=== PATIENT | male | born 1945 | race Caucasian/White ===

== ENCOUNTER → 2016-06-03 | Outpatient (REF) | payer MEDICARE ==
[~2016-06-03] MED LIST: ASPI1TAB PO; ASPI32ECTA PO; METO25TA74 PO; PLAV75TA38 PO; VALS1TAB46 PO; ZOCO20TA PO; [UNRECOGNIZED DRUG - OTHER] PO
== END ==
LOC: M LABSMT 13:19
PROVIDERS: ATTEND Urology
DX: Z90.79 Acquired absence of other genital organ(s) (principal)

== ENCOUNTER → 2016-06-28 | Outpatient (CLI) | payer MEDICARE ==
[2016-06-28 17:38] LABS: ALBUMIN 3.9 GM/DL (3.2-5.2); ALBUMIN/GLOBULIN RATIO 1.34 (1.00-1.93); ALKALINE PHOSPHATASE 67 U/L (45-117); ALT/SGPT 44 U/L (12-78); ANION GAP 6 MEQ/L (8-16); AST/SGOT 29 U/L (15-37); BILIRUBIN,TOTAL 0.5 MG/DL (0.2-1.0); BLOOD UREA NITROGEN 20 MG/DL (7-18); CALCIUM LEVEL 8.8 MG/DL (8.8-10.2); CARBON DIOXIDE LEVEL 28 MEQ/L (21-32); CHLORIDE LEVEL 111 MEQ/L (98-107); CREATININE FOR GFR 1.08 MG/DL (0.70-1.30); FREE T4 0.92 NG/DL (0.76-1.46); GLOMERULAR FILTRATION RATE > 60.0 (>42); GLUCOSE, FASTING 75 MG/DL (83-110); MAGNESIUM LEVEL 2.1 MG/DL (1.8-2.4); SODIUM LEVEL 145 MEQ/L (136-145); TOTAL PROTEIN 6.8 GM/DL (6.4-8.2)
== END ==
LOC: M SMT 14:46
PROVIDERS: ATTEND Internal Medicine Cardiovascular Disease
DX: I25.10 Atherosclerotic heart disease of native coronary artery without angina pectoris (principal); I10 Essential (primary) hypertension; I50.9 Heart failure, unspecified; I71.4 Abdominal aortic aneurysm, without rupture

== ENCOUNTER → 2016-09-05 | Outpatient (CLI) | payer MEDICARE | LOC: M SMT 09:23 | PROVIDERS: ATTEND Nurse Practitioner Women's Health | DX: C61 Malignant neoplasm of prostate (principal) ==

== ENCOUNTER → 2016-12-03 | Outpatient (REF) | payer MEDICARE ==
[~2016-12-03] MED LIST changes: +ASPI325T24 PO; -ASPI32ECTA PO; +METO1TAB32 PO; -METO25TA74 PO; +PLAV1TAB2 PO; -PLAV75TA38 PO
== END ==
LOC: M SMT 13:08
PROVIDERS: ATTEND Nurse Practitioner Women's Health
DX: C61 Malignant neoplasm of prostate (principal)

== ENCOUNTER → 2016-12-11 | Outpatient (REF) | payer MEDICARE | LOC: M SMT 17:08 | PROVIDERS: ATTEND Urology | DX: C61 Malignant neoplasm of prostate (principal); Z79.899 Other long term (current) drug therapy ==

== ENCOUNTER → 2017-12-23 | Outpatient (CLI) | payer MEDICARE | LOC: M ONCR 10:13 | DX: D23.30 Other benign neoplasm of skin of unspecified part of face (principal) | CPT/HCPCS: G0463 ==

== ENCOUNTER → 2017-12-29 | Outpatient (CLI) | payer MEDICARE ==
[2017-12-29 18:51] LABS: PROSTATIC SPECIFIC AG MONITOR < 0.01 NG/ML (< 4.0)
== END ==
LOC: M SMT 14:06
DX: C61 Malignant neoplasm of prostate (principal)
CPT/HCPCS: 84153

== ENCOUNTER → 2017-12-31 | Outpatient (REF) | payer MEDICARE ==
[2017-12-31 19:29] LABS: APPEARANCE, URINE CLEAR (CLEAR); BACTERIA, URINE AUTO NEGATIVE (NEGATIVE); BILIRUBIN, URINE AUTO NEGATIVE (NEGATIVE); BLOOD, URINE BLOOD 1+ (NEGATIVE); COLOR, URINE YELLOW (YELLOW); GLUCOSE, URINE (UA) AUTO NEGATIVE (NEGATIVE); KETONE, URINE AUTO NEGATIVE (NEGATIVE); LEUKOCYTE ESTERASE, URINE AUTO NEGATIVE (NEGATIVE); MUCUS, URINE SMALL (NEGATIVE); NITRITE, URINE AUTO NEGATIVE (NEGATIVE); PROTEIN, URINE AUTO NEGATIVE (NEGATIVE); RBC, URINE AUTO 9 /HPF (0-3); SPECIFIC GRAVITY URINE AUTO 1.015 (1.002-1.035); SQUAMOUS EPITHELIAL CELL UR AU 0 /HPF (0-6); UROBILINOGEN, URINE AUTO 0.2 mg/dL (0.0-2.0); WBC, URINE AUTO 0 /HPF (0-3)
== END ==
LOC: M SMT 16:58
DX: R35.0 Frequency of micturition (principal)
CPT/HCPCS: 81001

== ENCOUNTER → 2018-02-04 | Outpatient (RCR) | payer MEDICARE ==
--- NOTE | 2018-01-12 10:00 | RADONC ---
RADIATION ONCOLOGY SIMULATION NOTE: DATE: 01/08/2018 CHART NUMBER: [id number] SIMULATION NOTE: Mr. Griffin was taken to the linear accelerator today for clinical setup of his electron beam left neck field. Setup was accomplished without difficulty or discomfort. Radiation treatment planning is underway and radiation treatments will begin subsequently. An immobilization device was created and will be used throughout the course of treatment. I was physically present throughout the course of clinical setup simulation.
--- NOTE | 2018-01-20 10:49 | RADONC ---
RADIATION ONCOLOGY PROGRESS NOTE DATE: 01/19/2018 CHART NUMBER: [id number] Mr. Griffin underwent his first fraction of radiation to the skin on his left neck pain. A dose of 250 cGy was given. The patient's review of systems is noncontributory. He denies nausea, vomiting, fevers, chills, night sweats, diplopia, headaches, anxiety or depression, anorexia, weight loss, visual disturbances, chest pain, urinary or bowel difficulties, bone pain, or neurological problems. PHYSICAL EXAMINATION: The patient's skin clearly showed no evidence of radiation change since this was his first fraction. The remainder of his physical exam remains unchanged. Mr. Griffin is tolerating treatments quite well and radiation will continue as scheduled.
--- NOTE | 2018-01-27 11:01 | RADONC ---
RADIATION ONCOLOGY PROGRESS NOTE: DATE: 01/26/2018 CHART NUMBER: [id number] PROGRESS NOTE: Mr. Griffin is presently at a dose of 1500 cGy to the skin of his left neck and is tolerating treatments quite well at this point with no complaints related to his radiation therapy. He is having no skin discomfort or other problems. REVIEW OF SYSTEMS: The patient's review of systems is noncontributory. Denies nausea, vomiting, fevers, chills, night sweats, diplopia, headaches, anxiety or depression, anorexia, weight loss, visual disturbances, chest pain, urinary or bowel difficulties, bone pain, or neurological problems. PHYSICAL EXAMINATION: The patient's skin is in good condition with no evidence of radiation change present. There is no moist or dry desquamation. The remainder of his physical exam remains unchanged. Mr. Griffin is tolerating treatments quite well and radiation will continue as scheduled.
--- NOTE | 2018-02-03 12:16 | RADONC ---
RADIATION ONCOLOGY PROGRESS NOTE DATE: 02/02/2018 CHART NUMBER: [id number] PROGRESS NOTE: Mr. Griffin is currently receiving radiotherapy to the skin of his left neck. 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 He is currently receiving local regional radiotherapy to prevent a recurrence and is at a dose of 2750 cGy of an anticipated 5000 cGy. REVIEW OF SYSTEMS: He denies any major issues specifically denying nausea, vomiting, fevers, chills, night sweats, diplopia, headaches, anxiety, depression, anorexia, weight loss, visual disturbance, chest pain, urinary or bowel difficulties, bone pain or neurologic issues. He also denies any skin tingling or irritation. EXAMINATION FINDINGS: The skin within the irradiated volume shows neither erythema nor desquamation. Lymphatics: No palpable peripheral lymphadenopathy is appreciated. The remainder of the physical examination is unchanged. IMPRESSION: Tolerating therapy well. PLAN: Treatments to continue.
[~2018-02-04] MED LIST changes: +AMIO200T; +ASPI1CHW2 PO; -ASPI325T24 PO; +ASPI325T25 PO; +ASPI81TA85 PO; +CARV3.12; +DIGO0.25; +ENTR1TAB; +FURO40TA2; +NITR0.4S14 SL; +TOLT1CAP
== END ==
LOC: M ONCR 01-08 13:01
PROVIDERS: ATTEND Radiology Radiation Oncology
DX: C44.42 Squamous cell carcinoma of skin of scalp and neck (principal)

== ENCOUNTER 2018-02-05 14:39 | Outpatient (RCR) | payer MEDICARE | END 2018-03-06 | LOC: M ONCR 02-06 14:32 | DX: C44.42 Squamous cell carcinoma of skin of scalp and neck (principal) | CPT/HCPCS: 77336 ==

== ENCOUNTER → 2018-03-18 | Outpatient (CLI) | payer MEDICARE | LOC: M ONCR 14:39 | DX: D04.4 Carcinoma in situ of skin of scalp and neck (principal); Z92.3 Personal history of irradiation | CPT/HCPCS: G0463 ==

== ENCOUNTER 2018-03-25 16:20 | Emergency (ER) | payer MEDICARE ==
[~2018-03-25] VITALS: Ht 188 cm; Wt 198.0 kg
[~2018-03-25 16:20] MED LIST changes: -AMIO200T; -ASPI1CHW2 PO; -ASPI81TA85 PO; -CARV3.12; -DIGO0.25; -ENTR1TAB; -FURO40TA2; -NITR0.4S14 SL; -TOLT1CAP
[2018-03-25] MEDS ORDERED: ASPI1CHW2 PO (16:33)
[2018-03-25] MEDS ORDERED: ASPI81TA85 PO (16:33)
[2018-03-25] MEDS ORDERED: AMIO200T (16:33)
[2018-03-25] MEDS ORDERED: CARV3.12 (16:33)
[2018-03-25] MEDS ORDERED: ENTR1TAB (16:35)
[2018-03-25] MEDS ORDERED: NITR0.4S14 SL (16:35)
[2018-03-25] MEDS ORDERED: TOLT1CAP (16:35)
[2018-03-25] MEDS ORDERED: FURO40TA2 (16:35)
[2018-03-25] MEDS ORDERED: DIGO0.25 (16:35)
[2018-03-25 17:23] LABS: BASO # 0.1 10^3/uL (0.0-0.2); BASO % 1.4 % (0.0-1.0); EOS # 0.3 10^3/uL (0.0-0.50); EOS % 5.4 % (0.0-3.0); HEMOGLOBIN 14.5 g/dl (13.5-17.5); LYMPH # 1.1 10^3/uL (1.5-4.5); LYMPH % 20.6 % (24.0-44.0); MEAN CORPUSCULAR HEMOGLOBIN 31.9 pg (27.0-33.0); MEAN CORPUSCULAR VOLUME 96.7 fl (80.0-96.0); MONO # 0.8 10^3/uL (0.0-0.8); MONO % 14.6 % (0.0-5.0); NEUTROPHILS # 3.2 10^3/uL (1.8-7.7); NEUTROPHILS % 57.6 % (36.0-66.0); PLATELET COUNT, AUTOMATED 205 10^3/uL (150-450); RED BLOOD COUNT 4.55 10^6/uL (4.30-6.10); WHITE BLOOD COUNT 5.5 10^3/uL (4.0-10.0)
[2018-03-25 17:58] LABS: BLOOD UREA NITROGEN 25 MG/DL (7-18); CALCIUM LEVEL 8.5 MG/DL (8.8-10.2); CARBON DIOXIDE LEVEL 25 MEQ/L (21-32); CHLORIDE LEVEL 110 MEQ/L (98-107); CPK CREATINE PHOSPHOKINASE 301 U/L (39-308); CREATININE FOR GFR 1.28 MG/DL (0.70-1.30); FREE T4 0.85 NG/DL (0.76-1.46); GLOMERULAR FILTRATION RATE 58.6 (>42); GLUCOSE, FASTING 116 MG/DL (70-100); MB/CK RELATIVE INDEX 2.26 (< OR =4); POTASSIUM SERUM 4.5 MEQ/L (3.5-5.1); SODIUM LEVEL 142 MEQ/L (136-145); TROPONIN I < 0.02 NG/ML (< 0.10)
--- NOTE | 2018-03-25 18:10 | REP ---
Reason for exam is leukocytosis HISTORY: Chest pain. COMPARISON: Multiple, the latest 01/23/2016. The technique utilized in obtaining the radiograph has magnified the cardiac silhouette and accentuated the interstitial markings. There is cardiomegaly magnified by technique. Since the last examination a dual chamber bipolar pacemaker device has been placed. The lung cabello are unremarkable and essentially unchanged with minimal basilar fibrotic changes, status quo. The osseous structures stable and intact. IMPRESSION: Mild cardiomegaly. No evidence of acute cardiopulmonary disease. Electronically Signed by Terry Jensen DO 03/25/2018 06:24 P
--- NOTE | 2018-03-25 18:56 | REP ---
HISTORY: Trauma. COMPARISON: None. The ventricles and sulci are within normal limits for the patient's age. There are no extra-axial fluid collections. There is no evidence of an acute intracranial hemorrhage. There is no shift of the midline structures. There is a fullness in the sella turcica. The posterior fossa is unremarkable. IMPRESSION: Possible pituitary tumor. The examination is otherwise age appropriate. Electronically Signed by Terry Jensen DO 03/25/2018 07:05 P
--- NOTE | 2018-03-25 18:58 | REP ---
HISTORY: Pain in the neck after trauma. Rule out cervical spine fracture. Heavy hypertrophic degenerative change is seen involving the facet joints and uncovertebral joints bilaterally at every level. There is disc space narrowing at every level. There is no evidence of an acute cervical spine fracture. There is no evidence of abnormal paraspinal soft tissue swelling. There is evidence of multilevel central canal stenosis and foraminal narrowing due to the heavy degenerative changes. IMPRESSION: Marked chronic changes as described above. No evidence of an acute fracture. Electronically Signed by Terry Jensen DO 03/25/2018 07:20 P
[2018-03-25 20:02] VITALS: BP 131/70
--- NOTE | 2018-03-26 09:22 | ECGEPIP ---
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
== END 2018-03-25 20:17 | disposition home or self-care (01) ==
LOC: M ED 16:20
DX: S43.402A Unspecified sprain of left shoulder joint, initial encounter (principal); S13.9XXA Sprain of joints and ligaments of unspecified parts of neck, initial encounter; R07.89 Other chest pain; I44.0 Atrioventricular block, first degree; W00.9XXA Unspecified fall due to ice and snow, initial encounter; Y92.9 Unspecified place or not applicable; Y93.9 Activity, unspecified; Y99.9 Unspecified external cause status; I51.7 Cardiomegaly; I25.10 Atherosclerotic heart disease of native coronary artery without angina pectoris; I10 Essential (primary) hypertension; N40.0 Benign prostatic hyperplasia without lower urinary tract symptoms; Z79.82 Long term (current) use of aspirin; Z79.899 Other long term (current) drug therapy; Z88.1 Allergy status to other antibiotic agents

== ENCOUNTER 2018-10-30 12:27 | Emergency (ER) | payer MEDICARE ==
[~2018-10-30] VITALS: Ht 188 cm; Wt 81.2 kg
[~2018-10-30 12:27] MED LIST changes: +AMIO200T; +ASPI-255 PO; +ASPI1CHW2 PO; -ASPI1TAB PO; -ASPI325T25 PO; +ASPI81TA26 PO; +ASPI81TA85 PO; +CARV3.12; +DIGO0.25; +ENTR1TAB; +FURO40TA2; +NITR0.4S14 SL; +TOLT4CAP3; -VALS1TAB46 PO; +VALS1TAB66 PO
[2018-10-30 13:06] LABS: BASO # 0.1 10^3/uL (0.0-0.2); EOS # 0.2 10^3/uL (0.0-0.50); EOS % 5.2 % (0.0-3.0); HEMATOCRIT 46.4 % (42.0-52.0); HEMOGLOBIN 15.6 g/dl (13.5-17.5); LYMPH # 0.9 10^3/uL (1.5-4.5); MEAN CORPUSCULAR HEMOGLOBIN 32.6 pg (27.0-33.0); MEAN CORPUSCULAR HGB CONC 33.6 g/dl (32.0-36.5); MEAN CORPUSCULAR VOLUME 96.9 fl (80.0-96.0); MONO # 0.7 10^3/uL (0.0-0.8); MONO % 15.5 % (0.0-5.0); NEUTROPHILS # 2.5 10^3/uL (1.8-7.7); NEUTROPHILS % 57.1 % (36.0-66.0); PLATELET COUNT, AUTOMATED 200 10^3/uL (150-450); RED BLOOD COUNT 4.79 10^6/uL (4.30-6.10); WHITE BLOOD COUNT 4.5 10^3/uL (4.0-10.0)
[2018-10-30] MEDS ORDERED: [UNRECOGNIZED DRUG - OTHER] IM ONE (13:15)
[2018-10-30] MEDS ORDERED: HEPATITIS B IMMUNE GLOBULIN 5ML INJ (J1571) IM ONE (13:15)
[2018-10-30] MEDS ORDERED: TETANUS/DIPHTHERIA TOX ADSORB ADULT 0.5ML SYR/VIAL (90714) IM ONE (13:15)
[2018-10-30 13:32] LABS: ALT/SGPT 29 U/L (12-78); BILIRUBIN,TOTAL 0.8 MG/DL (0.2-1.0); BLOOD UREA NITROGEN 33 MG/DL (7-18); CALCIUM LEVEL 9.3 MG/DL (8.8-10.2); CARBON DIOXIDE LEVEL 26 MEQ/L (21-32); CHLORIDE LEVEL 108 MEQ/L (98-107); CREATININE FOR GFR 1.48 MG/DL (0.70-1.30); GLOMERULAR FILTRATION RATE 49.5 (>42); GLUCOSE, FASTING 90 MG/DL (70-100); POTASSIUM SERUM 4.1 MEQ/L (3.5-5.1); SODIUM LEVEL 141 MEQ/L (136-145); TOTAL PROTEIN 6.9 GM/DL (6.4-8.2)
[2018-10-30 13:41] LABS: HEPATITIS B SURFACE ANTIBODY NEGATIVE (POSITIVE)
[2018-10-30] MEDS ORDERED: EXPOSURE KIT-ADULT 7 DAY SUPPLY PO ONE (13:45)
[2018-10-30 13:51] LABS: HEPATITIS B SURFACE ANTIGEN NEGATIVE (NEGATIVE)
[2018-10-30] MEDS ORDERED: TRUVTAB PO (13:59)
[2018-10-30] MEDS ORDERED: RALT40TA PO (13:59)
[2018-10-30] MEDS ORDERED: ONDA4TAB6 PO (14:00)
[2018-10-30 14:20] LABS: HIV 1&2 SCREEN CENTAUR NEGATIVE (NEGATIVE)
[2018-10-30 14:23] VITALS: BP 129/60
== END 2018-10-30 14:24 | disposition home or self-care (01) ==
LOC: M ED 12:27
DX: S61.031A Puncture wound without foreign body of right thumb without damage to nail, initial encounter (principal); W46.0XXA Contact with hypodermic needle, initial encounter; Y92.89 Other specified places as the place of occurrence of the external cause; Y99.0 Civilian activity done for income or pay; I10 Essential (primary) hypertension; E78.9 Disorder of lipoprotein metabolism, unspecified; Z79.899 Other long term (current) drug therapy; Z79.82 Long term (current) use of aspirin; Z79.02 Long term (current) use of antithrombotics/antiplatelets; Z88.1 Allergy status to other antibiotic agents; Z88.2 Allergy status to sulfonamides; Z88.8 Allergy status to other drugs, medicaments and biological substances
CPT/HCPCS: 36415; 80053; 85025; 86706; 86803; 87340; 87389; 90471; 90714; 90746; 96372; 99284; J1571

== ENCOUNTER → 2018-11-30 | Outpatient (REF) | payer MEDICARE ==
[~2018-11-30] MED LIST changes: +ONDA4TAB6 PO; +RALT40TA PO; +TRUVTAB PO
[2018-11-30 14:10] LABS: BASO # 0.1 10^3/uL (0.0-0.2); BASO % 1.2 % (0.0-1.0); EOS # 0.3 10^3/uL (0.0-0.50); EOS % 4.2 % (0.0-3.0); HEMATOCRIT 47.3 % (42.0-52.0); HEMOGLOBIN 15.2 g/dl (13.5-17.5); LYMPH # 1.1 10^3/uL (1.5-4.5); LYMPH % 18.1 % (24.0-44.0); MEAN CORPUSCULAR HEMOGLOBIN 31.7 pg (27.0-33.0); MEAN CORPUSCULAR HGB CONC 32.1 g/dl (32.0-36.5); MEAN CORPUSCULAR VOLUME 98.7 fl (80.0-96.0); MONO # 0.8 10^3/uL (0.0-0.8); NEUTROPHILS # 3.7 10^3/uL (1.8-7.7); NEUTROPHILS % 62.2 % (36.0-66.0); PLATELET COUNT, AUTOMATED 212 10^3/uL (150-450); RED BLOOD COUNT 4.79 10^6/uL (4.30-6.10)
[2018-11-30 14:17] LABS: ALBUMIN 3.9 GM/DL (3.2-5.2); ALT/SGPT 30 U/L (12-78); BILIRUBIN,TOTAL 0.5 MG/DL (0.2-1.0); BLOOD UREA NITROGEN 23 MG/DL (7-18); CALCIUM LEVEL 9.1 MG/DL (8.8-10.2); CARBON DIOXIDE LEVEL 31 MEQ/L (21-32); CHLORIDE LEVEL 104 MEQ/L (98-107); CREATININE FOR GFR 1.34 MG/DL (0.70-1.30); GLOMERULAR FILTRATION RATE 55.5 (>42); GLUCOSE, FASTING 96 MG/DL (70-100); POTASSIUM SERUM 4.5 MEQ/L (3.5-5.1); SODIUM LEVEL 141 MEQ/L (136-145); TOTAL PROTEIN 6.5 GM/DL (6.4-8.2)
[2018-11-30 14:37] LABS: HEPATITIS B SURFACE ANTIGEN NEGATIVE (NEGATIVE)
[2018-11-30 15:05] LABS: HEPATITIS C VIRUS ABY INDEX < 0.0 INDEX (<0.8)
[2018-11-30 15:06] LABS: HIV 1&2 SCREEN CENTAUR NEGATIVE (NEGATIVE)
== END ==
LOC: M SFHCPLAZ 10:51
PROVIDERS: ATTEND Internal Medicine Infectious Disease
DX: Z77.21 Contact with and (suspected) exposure to potentially hazardous body fluids (principal)

== ENCOUNTER → 2019-01-01 | Outpatient (CLI) | payer MEDICARE | LOC: M SMT 10:00 | PROVIDERS: ATTEND Nurse Practitioner Women's Health | DX: Z85.46 Personal history of malignant neoplasm of prostate (principal) ==

== ENCOUNTER → 2019-01-22 | Outpatient (REF) | payer MEDICARE ==
[2019-01-22 13:34] LABS: BASO # 0.1 10^3/uL (0.0-0.2); BASO % 1.3 % (0.0-1.0); EOS # 0.3 10^3/uL (0.0-0.5); EOS % 4.5 % (0.0-3.0); HEMATOCRIT 49.7 % (42.0-52.0); LYMPH # 1.1 10^3/uL (1.5-5.0); LYMPH % 20.1 % (24.0-44.0); MEAN CORPUSCULAR HEMOGLOBIN 32.2 pg (27.0-33.0); MEAN CORPUSCULAR HGB CONC 32.2 g/dl (32.0-36.5); MONO # 0.8 10^3/uL (0.0-0.8); MONO % 13.5 % (0.0-5.0); NEUTROPHILS # 3.4 10^3/uL (1.5-8.5); NEUTROPHILS % 60.2 % (36.0-66.0); PLATELET COUNT, AUTOMATED 190 10^3/uL (150-450); RED BLOOD COUNT 4.97 10^6/uL (4.30-6.10); WHITE BLOOD COUNT 5.6 10^3/uL (4.0-10.0)
[2019-01-22 13:59] LABS: ALBUMIN 3.7 GM/DL (3.2-5.2); ALT/SGPT 25 U/L (12-78); BILIRUBIN,TOTAL 0.6 MG/DL (0.2-1.0); BLOOD UREA NITROGEN 29 MG/DL (7-18); CALCIUM LEVEL 9.1 MG/DL (8.8-10.2); CARBON DIOXIDE LEVEL 29 MEQ/L (21-32); CHLORIDE LEVEL 108 MEQ/L (98-107); CREATININE FOR GFR 1.29 MG/DL (0.70-1.30); GLUCOSE, FASTING 81 MG/DL (70-100); POTASSIUM SERUM 4.1 MEQ/L (3.5-5.1); SODIUM LEVEL 142 MEQ/L (136-145); TOTAL PROTEIN 6.5 GM/DL (6.4-8.2)
[2019-01-22 14:16] LABS: HEPATITIS B SURFACE ANTIGEN NEGATIVE (NEGATIVE)
[2019-01-22 14:44] LABS: HEPATITIS C VIRUS ABY INDEX 0.1 INDEX (<0.8)
[2019-01-22 14:45] LABS: HIV 1&2 SCREEN CENTAUR NEGATIVE (NEGATIVE)
== END ==
LOC: M SFHCPLAZ 12:58
PROVIDERS: ATTEND Internal Medicine Infectious Disease
DX: Z77.21 Contact with and (suspected) exposure to potentially hazardous body fluids (principal)

== ENCOUNTER → 2019-05-03 | Outpatient (REF) | payer MEDICARE ==
[~2019-05-03] MED LIST changes: -DIGO0.25; +DIGO0.253
[2019-05-03 15:10] LABS: HEPATITIS B SURFACE ANTIGEN NEGATIVE (NEGATIVE); HEPATITIS C VIRUS ABY INDEX < 0.0 INDEX (<0.8); HIV 1&2 SCREEN CENTAUR NEGATIVE (NEGATIVE)
== END ==
LOC: M SFHCPLAZ 10:30
PROVIDERS: ATTEND Internal Medicine Infectious Disease
DX: Z77.21 Contact with and (suspected) exposure to potentially hazardous body fluids (principal)

== ENCOUNTER → 2019-07-13 | Outpatient (REF) | payer MEDICARE ==
[2019-07-13 14:04] LABS: PROSTATIC SPECIFIC AG MONITOR < 0.01 NG/ML (< 4.00)
[2019-07-14 09:27] LABS: HEPATITIS B SURFACE ANTIGEN NEGATIVE (NEGATIVE)
[2019-07-14 09:56] LABS: HEPATITIS C VIRUS ABY INDEX 0.1 INDEX (<0.8); HIV 1&2 SCREEN CENTAUR NEGATIVE (NEGATIVE)
== END ==
LOC: M LABSMT 11:24
PROVIDERS: ATTEND Nurse Practitioner Women's Health
DX: Z11.59 Encounter for screening for other viral diseases (principal); Z85.46 Personal history of malignant neoplasm of prostate; Z77.21 Contact with and (suspected) exposure to potentially hazardous body fluids

== ENCOUNTER → 2019-10-25 | Outpatient (CLI) | payer MEDICARE ==
[~2019-10-25] MED LIST changes: -AMIO200T; +AMIO200T3 PO; -ASPI81TA85 PO; +ASPI81TA86 PO; +ATOR40TA75 PO; -CARV3.12; +CARV3.12 PO; -DIGO0.253; +DIGO0.253 PO; -ENTR1TAB; +ENTR1TAB PO; -FURO40TA2; +FURO40TA2 PO; -TOLT4CAP3; +TOLT4CAP3 PO
== END ==
LOC: M LABSMTC 09:45
PROVIDERS: ATTEND Pediatrics
DX: Z11.59 Encounter for screening for other viral diseases (principal); Z20.828 Contact with and (suspected) exposure to other viral communicable diseases

== ENCOUNTER → 2019-12-11 | Outpatient (CLI) | payer MEDICARE | LOC: M LABSMTC 08:40 | PROVIDERS: ATTEND Anesthesiology | DX: Z01.818 Encounter for other preprocedural examination (principal); Z20.828 Contact with and (suspected) exposure to other viral communicable diseases | CPT/HCPCS: C9803; U0003 ==

== ENCOUNTER 2019-12-16 08:05 | Day surgery (SDC) | payer MEDICARE ==
[~2019-12-16] VITALS: Ht 188 cm; Wt 83.5 kg
[~2019-12-16 08:05] MED LIST changes: +NS 1,000 ML IV ONE
[2019-12-16] MEDS ORDERED: propofoL 500 MG/50 ML VIAL As Ordered ONE ×2 (09:36→09:56)
[2019-12-16] MEDS ORDERED: LIDOCAINE 2% MDV 20ML VIAL As Ordered ONE (09:36)
[2019-12-16] MEDS ORDERED: fentaNYL 100 MCG/2 ML INJECTION (J3010) As Ordered ONE (09:36)
[2019-12-16] MEDS ORDERED: PHENYLEPHRINE 10MG/ML 1ML VIAL (J2370 PER 1) As Ordered ONE (09:55)
--- NOTE | 2019-12-16 10:20 | ROOR ---
Patient Name: Cristiano Griffin Procedure Date: 12/16/2019 9:36 AM Date of : 1945 Age: 74 Room: [facility] Gender: Male Note Status: Finalized Procedure: Colonoscopy Indications: Screening for colorectal malignant neoplasm Providers: Craig Mendoza MD Referring MD: DANNI DELACRUZ MD Requesting Provider: Medicines: Monitored Anesthesia Care Complications: No immediate complications. Procedure: Pre-Anesthesia Assessment: - Prior to the procedure, a History and Physical was performed, and patient medications and allergies were reviewed. The risks and benefits of the procedure and the sedation options and risks were discussed with the patient. All questions were answered and informed consent was obtained. Patient identification and proposed procedure were verified by the physician, the nurse and the anesthesiologist in the procedure room. Mental Status Examination: alert and oriented. Airway Examination: normal oropharyngeal airway and neck mobility. Respiratory Examination: clear to auscultation. CV Examination: normal. Prophylactic Antibiotics: The patient does not require prophylactic antibiotics. Prior Anticoagulants: The patient has taken Plavix (clopidogrel), last dose was 5 days prior to procedure. ASA Grade Assessment: III - A patient with severe systemic disease. After reviewing the risks and benefits, the patient was deemed in satisfactory condition to undergo the procedure. The anesthesia plan was to use monitored anesthesia care (MAC). Immediately prior to administration of medications, the patient was re-assessed for adequacy to receive sedatives. The heart rate, respiratory rate, oxygen saturations, blood pressure, adequacy of pulmonary ventilation, and response to care were monitored throughout the procedure. The physical status of the patient was re-assessed after the procedure. The Colonoscope was introduced through the anus and advanced to the terminal ileum, with identification of the appendiceal orifice and IC valve. The quality of the bowel preparation was good. The ileocecal valve, appendiceal orifice, and rectum were photographed. Scope insertion time was 2 minutes. Scope withdrawal time was 9 minutes. The total duration of the procedure was 12 minutes. Findings: The perianal and digital rectal examinations were normal. The terminal ileum appeared normal. Two sessile polyps were found in the recto-sigmoid colon and descending colon. The polyps were 8 to 10 mm in size. These polyps were removed with a cold snare. Resection and retrieval were complete. For hemostasis, two hemostatic clips were successfully placed. There was no bleeding at the end of the procedure. Non-bleeding external and internal hemorrhoids were found during retroflexion. The hemorrhoids were medium-sized. Impression: - The examined portion of the ileum was normal. - Two 8 to 10 mm polyps at the recto-sigmoid colon and in the descending colon, removed with a cold snare. Resected and retrieved. Clips were placed. - Non-bleeding external and internal hemorrhoids. Recommendation: - Patient has a contact number available for emergencies. The signs and symptoms of potential delayed complications were discussed with the patient. Return to normal activities tomorrow. Written discharge instructions were provided to the patient. - High fiber diet. - Resume Plavix (clopidogrel) at prior dose today. Refer to primary physician for further adjustment of therapy. - Await pathology results. - Repeat colonoscopy in 3 - 5 years for surveillance based on pathology results. - Telephone GI clinic for pathology results in 2 weeks. - Return to primary care physician. Craig Mendoza MD Craig Mendoza MD 12/16/2019 10:20:36 AM Electronically signed by Craig Mendoza MD Number of Addenda: 0 Note Initiated On: 12/16/2019 9:36 AM Estimated Blood Loss: Estimated blood loss was minimal.
[2019-12-16 11:01] VITALS: BP 116/68
== END 2019-12-16 10:24 | disposition home or self-care (01) ==
LOC: M OPP 08:05
PROVIDERS: ATTEND Internal Medicine Gastroenterology
DX: Z12.11 Encounter for screening for malignant neoplasm of colon (principal); D12.6 Benign neoplasm of colon, unspecified; K64.8 Other hemorrhoids; I25.2 Old myocardial infarction; Z79.82 Long term (current) use of aspirin; Z79.899 Other long term (current) drug therapy; Z88.1 Allergy status to other antibiotic agents; Z88.8 Allergy status to other drugs, medicaments and biological substances; Z85.46 Personal history of malignant neoplasm of prostate; Z92.3 Personal history of irradiation; Z95.810 Presence of automatic (implantable) cardiac defibrillator; Z87.891 Personal history of nicotine dependence
CPT/HCPCS: 45385; 88305; J2370; J3010

== ENCOUNTER → 2020-01-19 | Outpatient (CLI) | payer MEDICARE ==
[~2020-01-19] MED LIST changes: -NS 1,000 ML IV ONE
== END ==
LOC: M LAB 08:44
PROVIDERS: ATTEND Nurse Practitioner Women's Health
DX: Z85.46 Personal history of malignant neoplasm of prostate (principal)

== ENCOUNTER → 2020-04-22 | Outpatient (CLI) | payer SELFPAY | LOC: M LABSMTC 08:06 | PROVIDERS: ATTEND Pediatrics | DX: Z20.822 Contact with and (suspected) exposure to COVID-19 (principal) ==

== ENCOUNTER → 2020-07-31 | Outpatient (REF) | payer MEDICARE | LOC: M PLALAB 08:37 | PROVIDERS: ATTEND Nurse Practitioner Women's Health | DX: Z85.46 Personal history of malignant neoplasm of prostate (principal) | CPT/HCPCS: 36415; 84153; G0463 ==

== ENCOUNTER → 2020-09-15 | Outpatient (CLI) | payer MEDICARE ==
[~2020-09-15] MED LIST changes: +EMTR1TAB16 PO; -TRUVTAB PO
--- NOTE | 2020-09-15 18:27 | REP ---
INDICATION: UNIL INGUINAL HERNIA, W OBST, W/O GANGR, NOT SPCF RECUR. COMPARISON: None. TECHNIQUE: Real-time sonographic evaluation of bilateral inguinal regions performed at rest and with Valsalva maneuver. FINDINGS: There is a left inguinal hernia containing fat. The defect at rest measures 13 mm in diameter and with Valsalva maneuver increases to 27 mm. No bowel extends into the hernia. The hernia is not completely reducible. There is no right inguinal hernia. IMPRESSION: Non reducible left inguinal hernia containing fat. <Electronically signed by Luis Parker > 09/15/20 [id number]
== END ==
LOC: M RAD 10:18
PROVIDERS: ATTEND Surgery
DX: K40.30 Unilateral inguinal hernia, with obstruction, without gangrene, not specified as recurrent (principal)

== ENCOUNTER 2020-10-09 10:38 | Emergency (ER) | payer MEDICARE ==
[~2020-10-09] VITALS: Ht 188 cm; Wt 83.2 kg
[2020-10-09] MEDS ORDERED: ENTR1TAB PO (11:28)
[2020-10-09] MEDS ORDERED: CLOP75TA2 PO (11:28)
[2020-10-09] MEDS ORDERED: NITR0.4S14 SL (11:28)
[2020-10-09 12:18] LABS: BASO # 0.1 10^3/uL (0.0-0.2); BASO % 1.3 % (0.0-1.0); EOS # 0.3 10^3/uL (0.0-0.5); EOS % 4.7 % (0.0-3.0); HEMOGLOBIN 15.3 g/dl (13.5-17.5); LYMPH # 1.1 10^3/uL (1.5-5.0); LYMPH % 15.7 % (24.0-44.0); MEAN CORPUSCULAR HEMOGLOBIN 31.4 pg (27.0-33.0); MEAN CORPUSCULAR HGB CONC 32.6 g/dl (32.0-36.5); MEAN CORPUSCULAR VOLUME 96.3 fl (80.0-96.0); MONO # 1.1 10^3/uL (0.0-0.8); MONO % 15.1 % (2.0-8.0); NEUTROPHILS # 4.5 10^3/uL (1.5-8.5); NEUTROPHILS % 62.9 % (36.0-66.0); PLATELET COUNT, AUTOMATED 223 10^3/uL (150-450); RED BLOOD COUNT 4.88 10^6/uL (4.30-6.10); WHITE BLOOD COUNT 7.2 10^3/uL (4.0-10.0)
[2020-10-09 12:52] LABS: ALBUMIN 3.6 GM/DL (3.2-5.2); ALT/SGPT 20 U/L (12-78); BILIRUBIN,DIRECT 0.1 MG/DL (0.0-0.2); BILIRUBIN,TOTAL 0.7 MG/DL (0.2-1.0); BLOOD UREA NITROGEN 18 MG/DL (7-18); CALCIUM LEVEL 9.1 MG/DL (8.8-10.2); CARBON DIOXIDE LEVEL 30 MEQ/L (21-32); CHLORIDE LEVEL 106 MEQ/L (98-107); GLOMERULAR FILTRATION RATE > 60.0 (>42); GLUCOSE, FASTING 90 MG/DL (70-100); LIPASE 140 U/L (73-393); POTASSIUM SERUM 4.6 MEQ/L (3.5-5.1); SODIUM LEVEL 139 MEQ/L (136-145); TOTAL PROTEIN 6.8 GM/DL (6.4-8.2)
[2020-10-09] MEDS ORDERED: NS 500 ML IV ONE (12:55)
[2020-10-09] MEDS ORDERED: LIDOCAINE 5% (LIDODERM) PATCH TD ONE (12:55)
[2020-10-09] MEDS ORDERED: ACETAMINOPHEN 500 MG TAB PO ONE (12:55)
--- NOTE | 2020-10-09 13:07 | REP ---
INDICATION: diffuse low back pain, h/o kidney stones and prostate ca COMPARISON: 04/14/2015 TECHNIQUE: Axial noncontrast images from the lung bases to the pubic symphysis with coronal and sagittal reformations. This CT examination was performed using the following dose reduction techniques: Automated exposure control, adjustment of mA and/or kv according to the patient's size, and use of iterative reconstruction technique. FINDINGS: Lung bases demonstrate cardiomegaly with findings to suggest mild pulmonary vascular congestion. Liver, spleen, pancreas, gallbladder, and bilateral adrenal glands are normal. The right kidney demonstrates a 2.2 cm round exophytic lower pole lesion which is of mixed density and may represent complex proteinaceous cyst versus small mass. The left kidney includes a relatively stable thinly septated 8 cm upper pole cyst and few smaller isodense rounded lesions which may represent complex proteinaceous cysts. There is no evidence for nephroureterolithiasis, hydronephrosis or obstructing ureteral calculi. The enteric system is unremarkable and without obstruction or acute inflammatory process. Normal terminal ileum and appendix identified in the right lower quadrant. Pelvis demonstrates normal bladder and findings to suggest prior prostate surgery. Small fat containing left inguinal hernia noted. No ascites. No free air. No adenopathy. No focal inflammatory stranding. Abdominal aorta without aneurysm. Musculoskeletal structures are intact and without acute osseous abnormality. IMPRESSION: 1. Simple and possible complex cystic changes to the bilateral kidneys as detailed above. Consider follow-up renal ultrasound for confirmation and correlation. No associated hydronephrosis or nephroureterolithiasis. 2. Small fat containing left inguinal hernia. <Electronically signed by Jorge Luis Coker > 10/09/20 [id number]
[2020-10-09] MEDS ORDERED: LIDO5DIS41 TOP (16:17)
[2020-10-09 16:36] VITALS: BP 124/76
[2020-10-10] MEDS ORDERED: **NOTE PATIENT COMMENT** MISC XX ONE (01:00)
[2020-10-10] MEDS ORDERED: DONE5TAB82 PO (20:19)
[2020-10-10] MEDS ORDERED: FURO40TA2 PO (20:19)
[2020-10-10] MEDS ORDERED: BIMA01SOL OU (20:19)
[2020-10-10] MEDS ORDERED: ASPI1TAB8 PO (20:19)
== END 2020-10-09 16:45 | disposition home or self-care (01) ==
LOC: EDBD 10:38 → M ED 10:38
DX: S39.012A Strain of muscle, fascia and tendon of lower back, initial encounter (principal); X50.0XXA Overexertion from strenuous movement or load, initial encounter; Y92.9 Unspecified place or not applicable; Y93.9 Activity, unspecified; Y99.9 Unspecified external cause status; N28.1 Cyst of kidney, acquired; K40.90 Unilateral inguinal hernia, without obstruction or gangrene, not specified as recurrent; I11.9 Hypertensive heart disease without heart failure; I25.2 Old myocardial infarction; E78.5 Hyperlipidemia, unspecified; Z95.0 Presence of cardiac pacemaker; Z85.46 Personal history of malignant neoplasm of prostate; Z87.891 Personal history of nicotine dependence; Z88.1 Allergy status to other antibiotic agents; Z79.899 Other long term (current) drug therapy

== ENCOUNTER 2020-10-10 13:08 | Inpatient (IN) | payer MEDICARE ==
[~2020-10-10] VITALS: Ht 188 cm; Wt 83.2 kg
[~2020-10-10 13:08] MED LIST changes: +CLOP75TA2 PO; +LIDO5DIS41 TOP
[2020-10-10] MEDS ORDERED: MORPHINE 2 MG/ML 1ML VIAL (J2270) IM ONE (17:30)
[2020-10-10] MEDS ORDERED: LIDOCAINE 5% (LIDODERM) PATCH TD ONE (17:30)
[2020-10-10] MEDS ORDERED: ONDANSETRON 4 MG ORAL DISINTEGRATING TAB PO ONE (17:30)
--- NOTE | 2020-10-10 19:26 | REPVR ---
PROCEDURE INFORMATION: Exam: CT Thoracic Spine Without Contrast Exam date and time: 10/10/2020 6:53 PM Age: 75 years old Clinical indication: Other: Severe back pain, fall 2 weeks ago TECHNIQUE: Imaging protocol: Computed tomography images of the thoracic spine without contrast. Radiation optimization: All CT scans at this facility use at least one of these dose optimization techniques: automated exposure control; mA and/or kV adjustment per patient size (includes targeted exams where dose is matched to clinical indication); or iterative reconstruction. COMPARISON: CT ABD PELVIS W/O CONTRAST 10/09/2020 12:42 PM FINDINGS: Vertebrae: Vertebral body height and AP alignment is preserved. Small sclerotic focus at T6, probably enostosis. Mild prevertebral osteophytosis. There are facet joint degenerative changes. No acute thoracic spine fracture. No osseous destruction. Discs/Spinal canal/Neural foramina: No definite significant central canal stenosis within limitations of technique. Soft tissues: See "Vertebrae" finding. Lungs: Lungs are better evaluated on dedicated examination. IMPRESSION: No acute osseous abnormality. Electronically signed by: Prasad Briggs On 10/10/2020 19:26:17 PM
--- NOTE | 2020-10-10 19:31 | REPVR ---
PROCEDURE INFORMATION: Exam: CT Chest Without Contrast; Diagnostic Exam date and time: 10/10/2020 6:53 PM Age: 75 years old Clinical indication: Other: Left lower rib pain fall two weeks ago, RO fracture TECHNIQUE: Imaging protocol: Diagnostic computed tomography of the chest without contrast. Radiation optimization: All CT scans at this facility use at least one of these dose optimization techniques: automated exposure control; mA and/or kV adjustment per patient size (includes targeted exams where dose is matched to clinical indication); or iterative reconstruction. COMPARISON: CT ABD PELVIS W/O CONTRAST 10/09/2020 12:42 PM FINDINGS: Tubes, catheters and devices: Left chest cardiac device. Thyroid: Right thyroid nodule measures 8 mm. Lungs: Mild scarring at the lung apices. There is emphysema with upper lobe predominance. There are mild bilateral posterior dependent changes. There are small nodular foci of ground-glass density involving both lungs. These measure up to 6 mm. No ramon alveolar consolidation. Pleural spaces: Unremarkable. No pneumothorax. No pleural effusion. Heart: Coronary artery calcification. Aorta: Aortic calcification without aneurysm. Lymph nodes: Unremarkable. No enlarged lymph nodes. Kidneys and ureters: Left renal cyst measures at least 7.7 cm, incompletely visualized. Bones/joints: Unremarkable. No acute fracture. Soft tissues: Unremarkable. IMPRESSION: 1. No acute traumatic abnormality. 2. There are multifocal nodular foci of ground-glass density measuring up to [address] Chest at 3-6 months. Subsequent management based on the most suspicious nodule(s). (Reference: Mahesh) 3. Additional findings as above. COMMENTS: 1. Consistent with the [employer]'s Incidental Findings Committee white paper (J Am Arnold Radiol 2015): In patients aged 35 years and older with an incidental thyroid nodule equal to or greater than 1.[address], MRI or extrathyroidal US, further evaluation with dedicated thyroid US is recommended for patients with normal life expectancy and without comorbidities. For smaller nodules without suspicious features, no further evaluation or follow up is recommended. 2. Consistent with the [employer]'s Incidental Findings Committee white paper (J Am Arnold Radiol 2018): Any incidental renal lesion less than 1 cm or classified as too small to characterize, or any incidental cystic renal lesion characterized as simple-appearing, is likely benign. No follow-up imaging is recommended for these lesions per consensus recommendations based on imaging criteria. REFERENCES: Mahesh Gomes et al. Guidelines for Management of Incidental Pulmonary Nodules Detected on CT Images: From the [employer] Society 2017. Radiology. 2017;284(1):228-243. Electronically signed by: Prasad Briggs On 10/10/2020 19:31:12 PM
--- NOTE | 2020-10-10 19:33 | REPVR ---
PROCEDURE INFORMATION: Exam: CT Lumbar Spine Without Contrast Exam date and time: 10/10/2020 6:53 PM Age: 75 years old Clinical indication: Other: Severe back pain, fall 2 weeks ago TECHNIQUE: Imaging protocol: Computed tomography images of the lumbar spine without contrast. Radiation optimization: All CT scans at this facility use at least one of these dose optimization techniques: automated exposure control; mA and/or kV adjustment per patient size (includes targeted exams where dose is matched to clinical indication); or iterative reconstruction. COMPARISON: CT ABD PELVIS W/O CONTRAST 10/09/2020 12:42 PM FINDINGS: Vertebrae: Mild retrolisthesis of L4 on L5. Vertebral body heights are preserved. Moderate prevertebral osteophytosis. There are bilateral facet joint degenerative changes. No acute lumbar spine fracture. Discs/Spinal canal/Neural foramina: No definite high-grade central canal stenosis within limitations of technique. Multilevel foraminal stenoses. Kidneys and ureters: Large left renal cyst is incompletely visualized. Vasculature: Vascular calcification. Soft tissues: See "Vertebrae" finding. IMPRESSION: No acute lumbar spine fracture. COMMENTS: Consistent with the [employer]'s Incidental Findings Committee white paper (J Am Arnold Radiol 2018): Any incidental renal lesion less than 1 cm or classified as too small to characterize, or any incidental cystic renal lesion characterized as simple-appearing, is likely benign. No follow-up imaging is recommended for these lesions per consensus recommendations based on imaging criteria. Electronically signed by: Prasad Briggs On 10/10/2020 19:33:16 PM
[2020-10-10] MEDS ORDERED: ASPI1TAB8 PO (20:19)
[2020-10-10] MEDS ORDERED: FURO40TA2 PO (20:19)
[2020-10-10] MEDS ORDERED: DONE5TAB82 PO (20:19)
[2020-10-10] MEDS ORDERED: BIMA01SOL OU (20:19)
[2020-10-10] MEDS ORDERED: NITROGLYCERIN 0.4 MG SUBL TABLET SL PRN (20:35)
[2020-10-10] MEDS ORDERED: MAALOX 30 ML SUSP *UDC PO PRN (20:35)
--- NOTE | 2020-10-10 20:39 | HPEPDOC ---
[facility] Medical History & Physical Date of Admission Oct 10, 2020 Date of Service: Oct 10, 2020 Attending Physician: JAMES GTZ MD History and Physical CHIEF COMPLAINT: [75 y/o male c/o increasing back pain x5 days] HISTORY OF PRESENT ILLNESS: [This is a 75 y/o male with a pmh of CAD s/p stent placement, cardiac arrest s/p AICD placement, prostate ca s/p prostatectomy, htn and hld who presents to our ed with a cc of severe lower back pain x5 days. Patient believes the pain started after a day of yardwork. Patient was seen in our ED yesterday 10/09 with the same complaint. Patient at that time had pain relief with lidocaine patch placed in ED and workup done at that time was negative for red flag spinal symptoms or acute pathology on ct scan. Patient states that he went home and his pain returned overnight and was barely able to make it out of bed due to his pain. Patient states that his pain is located in his lower spine and does not radiate. Patient states that he has many stairs at home and fears he is unable to get up and down them easily with his pain. Patient states that he has been active by doing yard work until his back began to ache. Patient denies paresthesias, saddle anesthesia, paralysis, new onset incontinence, inability to feel temperature in the lower extremities, chest pain, sob, fever, chills, n/v/d/c.] PAST MEDICAL HISTORY: 1. [See HPI PAST SURGICAL HISTORY: 1. [Stent placement]. 2. [AICD placement 3. Pacemaker placement]. 4. [Prostatectomy 5. Tonsillectomy 6. Unspecified hernia repair]. SOCIAL HISTORY: Tobacco use:[smoked in his 20s] ETOH: [denies] Illicit drug use: [denies] FAMILY HISTORY: reviewed - none pertinent ALLERGIES: Please see below. REVIEW OF SYSTEMS: CONSTITUTIONAL: [See HPI]. HEENT: [Denies uri sx]. CARDIOVASCULAR: [See HPI]. RESPIRATORY: [See HPI]. GASTROINTESTINAL: [See HPI]. GENITOURINARY: [Denies dysuria, oliguria]. SKIN: [Denies rash]. MUSCULOSKELETAL: [See HPI]. NEUROLOGICAL: [See HPI]. ENDOCRINE: [Denies hx of DM]. HEMATOLOGIC/LYMPHATIC: [Denies easy bruising]. HOME MEDICATIONS: Please see below. PHYSICAL EXAMINATION: VITAL SIGNS: Please see below. GENERAL APPEARANCE: [This is a wn/wd 75 y/o male. He is laying in bed and does not appear to be in any respiratory distress.]. HEENT: [No mass or lesion. EOMI. No scleral icterus. Nares patent. oral mucosa moist without erythema.]. CARDIOVASCULAR: [Regular rate, rhythm. No murmurs, rubs, gallops]. LUNGS: [Good air flow b/l. No wheezing, rales, rhonchi]. ABDOMEN: [Soft, mildly tender to b/l lower quadrants. Non distended]. MUSCULOSKELETAL: [No joint deformity]. EXTREMITIES: [No peripheral edema. No overlying skin changes. Pulses intact.]. NEUROLOGICAL: [Strength rated at 5/5 in all extremities. Negative straight leg raise. Negative babinski. Sensation intact. A+Ox3. No focal deficits]. PSYCHIATRIC: [Mood and affect appear appropriate.]. LABORATORY DATA: See below. IMAGING: [Chest CT: FINDINGS: Tubes, catheters and devices: Left chest cardiac device. Thyroid: Right thyroid nodule measures 8 mm. Lungs: Mild scarring at the lung apices. There is emphysema with upper lobe predominance. There are mild bilateral posterior dependent changes. There are small nodular foci of ground-glass density involving both lungs. These measure up to 6 mm. No ramon alveolar consolidation. Pleural spaces: Unremarkable. No pneumothorax. No pleural effusion. Heart: Coronary artery calcification. Aorta: Aortic calcification without aneurysm. Lymph nodes: Unremarkable. No enlarged lymph nodes. Kidneys and ureters: Left renal cyst measures at least 7.7 cm, incompletely visualized. Bones/joints: Unremarkable. No acute fracture. Soft tissues: Unremarkable. IMPRESSION: 1. No acute traumatic abnormality. 2. There are multifocal nodular foci of ground-glass density measuring up to [address] Chest at 3-6 months. Subsequent management based on the most suspicious nodule(s). (Reference: Mahesh) 3. Additional findings as above. CT Lumbar spine: FINDINGS: Vertebrae: Mild retrolisthesis of L4 on L5. Vertebral body heights are preserved. Moderate prevertebral osteophytosis. There are bilateral facet joint degenerative changes. No acute lumbar spine fracture. Discs/Spinal canal/Neural foramina: No definite high-grade central canal stenosis within limitations of technique. Multilevel foraminal stenoses. Kidneys and ureters: Large left renal cyst is incompletely visualized. Vasculature: Vascular calcification. Soft tissues: See "Vertebrae" finding. IMPRESSION: No acute lumbar spine fracture. Thoracic spine ct: FINDINGS: Vertebrae: Vertebral body height and AP alignment is preserved. Small sclerotic focus at T6, probably enostosis. Mild prevertebral osteophytosis. There are facet joint degenerative changes. No acute thoracic spine fracture. No osseous destruction. Discs/Spinal canal/Neural foramina: No definite significant central canal stenosis within limitations of technique. Soft tissues: See "Vertebrae" finding. Lungs: Lungs are better evaluated on dedicated examination. IMPRESSION: No acute osseous abnormality. ] MICROBIOLOGY: Please see below. ASSESSMENT: [This is a 75 y/o male with a pmh of CAD s/p stent placement, cardiac arrest s/p AICD placement, prostate ca s/p prostatectomy, htn and hld who presents to our ed with a cc of severe lower back pain x5 days. Patient had grossly negative workup in the ED two days in a row.]. . PLAN: 1. [Lower back pain - Most likely d/t muscular strain. CT imaging is only relevant for mild retrolisthesis of L4 vertebrae. - Patient unable to undergo mri for full r/o of compression d/t pacemaker and aicd placement, however compression syndrome seems very unlikely in this patient as there are no red flag symptoms at time of my exam - Pain control with percocet, lidocaine patch - PT/OT eval - admit to med surg under obs for pt eval. patient has many stairs at his home that he cannot climb at this time 2. CAD - continue plavix, asa, nitroglycerin 3. Hx a-fib - continue amiodarone, digoxin 4. HTN - continue entresto, lasix, carvedilol 5. urinary frequency s/p prostatectomy - continue tolteradine 6. HLD - continue atorvastatin 7. Dementia - continue donepezil DVT prophylaxis - patient on plavix and asa]. Vital Signs Vital Signs Date Time Temp Pulse Resp B/P (MAP) Pulse Ox O2 Delivery O2 Flow Rate FiO2 10/10/20 18:07 18 10/10/20 13:08 97.4 66 132/65 (87) 98 Room Air Laboratory Data Labs 24H Laboratory Tests 2 10/10/20 20:09: Home Medications Scheduled Amiodarone HCl (Amiodarone HCl) 200 Mg Tab, 200 MG PO Q2D Aspirin (Aspirin EC) 81 Mg Tablet.dr, 81 MG PO DAILY Atorvastatin Calcium (Atorvastatin Calcium) 40 Mg Tablet, 40 MG PO DAILY Bimatoprost (Lumigan) 0.01% 2.5ML Drops, 1 DROP OU QHS Carvedilol (Carvedilol) 3.125 Mg Tab, 3.125 MG PO QHS Clopidogrel Bisulfate (Clopidogrel) 75 Mg Tablet, 75 MG PO Q2D Digoxin (Digoxin) 250 Mcg Tab, 250 MCG PO QHS Donepezil HCl (Donepezil HCl) 5 Mg Tablet, 5 MG PO QHS Furosemide (Furosemide) 40 Mg Tablet, 20 MG PO QHS Sacubitril/Valsartan (Entresto 24 mg-26 mg Tablet) 1 Each Tablet, 1 TAB PO BID Tolterodine Tartrate (Tolterodine Tartrate ER) 4 Mg Cap, 4 MG PO DAILY Scheduled PRN Nitroglycerin (Nitroglycerin) 0.4 Mg Tab.subl, 0.4 MG SL NITRO PRN for CHEST PAIN Allergies Coded Allergies: ciprofloxacin (Verified Allergy, Unknown, 12/08/19) sulfamethoxazole (Verified Allergy, Unknown, 12/08/19) trimethoprim (Verified Allergy, Unknown, 12/08/19) A-FIB/CHADSVASC A-FIB History Current/History of A-Fib/PAF?: Yes Current PO Anticoag Therapy: No (asa and plavix, s/p pacemaker) ALVARO COBB Oct 10, 2020 20:39
[2020-10-10] MEDS: **NOTE PATIENT COMMENT** MISC XX SCH (21:00)
[2020-10-10] MEDS: DIGOXIN 0.25 MG TAB PO SCH (21:00)
[2020-10-10] MEDS: FUROSEMIDE 20 MG TAB PO SCH (21:00)
[2020-10-10] MEDS: CARVedilol 3.125 MG TAB PO SCH (21:00)
[2020-10-10] MEDS ORDERED: **NOTE PATIENT COMMENT** MISC XX SCH (21:00)
[2020-10-10] MEDS: DOCUSATE SODIUM 100MG CAPSULE PO SCH (21:00)
[2020-10-10 21:11] LABS: RSV AMPLIFICATION NEGATIVE (NEGATIVE)
[2020-10-10] MEDS: PERCOCET 5MG/325MG TAB PO PRN (22:30)
[2020-10-10] MEDS: DONEPEZIL 5 MG TAB PO SCH (23:44)
[2020-10-10] MEDS: ENTRESTO 24-26MG TABLET (SACUBITRIL/VALSARTAN) PO SCH (23:44)
[2020-10-11] MEDS: PERCOCET 5MG/325MG TAB PO PRN (05:57)
[2020-10-11 07:43] LABS: BASO # 0.1 10^3/uL (0.0-0.2); BASO % 1.2 % (0.0-1.0); EOS # 0.3 10^3/uL (0.0-0.5); EOS % 4.3 % (0.0-3.0); HEMATOCRIT 42.7 % (42.0-52.0); HEMOGLOBIN 13.7 g/dl (13.5-17.5); LYMPH % 17.7 % (24.0-44.0); MEAN CORPUSCULAR HEMOGLOBIN 31.1 pg (27.0-33.0); MEAN CORPUSCULAR HGB CONC 32.1 g/dl (32.0-36.5); MONO # 0.8 10^3/uL (0.0-0.8); MONO % 14.3 % (2.0-8.0); NEUTROPHILS # 3.6 10^3/uL (1.5-8.5); PLATELET COUNT, AUTOMATED 215 10^3/uL (150-450); WHITE BLOOD COUNT 5.8 10^3/uL (4.0-10.0)
[2020-10-11 07:55] LABS: INR 1.12; PROTHROMBIN TIME 14.6 SECONDS (12.5-14.3)
[2020-10-11 07:56] LABS: PARTIAL THROMBOPLASTIN TIME 37.5 SECONDS (24.2-38.5)
[2020-10-11 08:29] LABS: ALBUMIN 3.2 GM/DL (3.2-5.2); ALT/SGPT 19 U/L (12-78); BILIRUBIN,TOTAL 0.9 MG/DL (0.2-1.0); BLOOD UREA NITROGEN 24 MG/DL (7-18); CALCIUM LEVEL 8.7 MG/DL (8.8-10.2); CARBON DIOXIDE LEVEL 26 MEQ/L (21-32); CHLORIDE LEVEL 107 MEQ/L (98-107); CREATININE FOR GFR 1.09 MG/DL (0.70-1.30); DIGOXIN LEVEL 1.1 NG/ML (0.5-2.0); GLOMERULAR FILTRATION RATE > 60.0 (>42); GLUCOSE, FASTING 98 MG/DL (70-100); MAGNESIUM LEVEL 2.2 MG/DL (1.8-2.4); POTASSIUM SERUM 3.9 MEQ/L (3.5-5.1); SODIUM LEVEL 143 MEQ/L (136-145); TOTAL PROTEIN 6.1 GM/DL (6.4-8.2)
[2020-10-11 08:30] VITALS: BP 123/66
[2020-10-11] MEDS ORDERED: ONDANSETRON 4 MG TAB PO PRN (08:35)
[2020-10-11] MEDS ORDERED: ENOXAPARIN 40MG/0.4ML SYRINGE (J1650 PER 10MG) SC SCH (09:00)
[2020-10-11] MEDS: LIDOCAINE 5% (LIDODERM) PATCH TD SCH (10:53)
[2020-10-11] MEDS: ATORVASTATIN 20 MG TAB PO SCH (10:54)
[2020-10-11] MEDS: ASPIRIN 81MG ENTERIC TABLET PO SCH (10:54)
[2020-10-11] MEDS: ENTRESTO 24-26MG TABLET (SACUBITRIL/VALSARTAN) PO SCH ×2 (10:54→20:25)
[2020-10-11] MEDS: TOLTERODINE TARTRATE 2 MG LA CAP (DETROL LA) PO SCH (10:54)
[2020-10-11] MEDS: DOCUSATE SODIUM 100MG CAPSULE PO SCH ×2 (10:55→20:26)
[2020-10-11] MEDS ORDERED: METOCLOPRAMIDE 5 MG TAB PO ONE (11:45)
[2020-10-11 12:07] LABS: C REACTIVE PROTEIN QUANTITATIV 3.03 MG/DL (0.00-0.30)
--- NOTE | 2020-10-11 12:50 | IPNPDOC ---
Date Seen The patient was seen on 10/11/20. Progress Note SUBJECTIVE: Patient was seen and examined at bedside. Acute events overnight. He continues to report severe lumbar back pain upon flexion and extension of the back. Also endorses nausea since getting oxycodone for pain control. Denies any chest pain, palpitations, fevers, chills, lightheadedness, or headache. OBJECTIVE PHYSICAL EXAMINATION: VITAL SIGNS: please see below General: NAD, comfortable HEENT: PERRLA, EOMI, sclerae clear Neck: supple, normal ROM, no JVD Respiratory: lungs CTAB, no wheeze, no rales, no crackles CVS: RRR, normal S1, S2, no murmurs Abdo: soft, no masses, no hepatosplenomegaly, BS+, no rebound tenderness Extremities: no edema, pulses 2+ MSK: No significant pain to outpatient of spinal column. Mild tenderness to palpation of the paraspinal muscles in the lumbar area. Neuro: no focal neuro deficits, moving all 4 extremities, CN2-12 intact. Strength 5/5 in all 4 extremities. No nystagmus. , No loss of sensation. No paresthesias. Psych: calm, cooperative, AAO x 3 LABORATORY DATA, IMAGING STUDIES, MICROBIOLOGY: Please see below. DVT prophylaxis ordered?: SCDs and TEDs. ASSESSMENT AND PLAN: 75 from [place] with history of CAD status post stenting, cardiac arrest, status post AICD placement, prostate cancer status post prostatectomy as well as hypertension, hyperlipidemia. Patient presented to ER complaining of severe lumbar back pain for the past 5 days. Denies any history of injury, falls, spinal surgery. PROBLEMS: 1. Lumbar back pain suspect 2/2 lumbar radiculopathy - CT imaging is only relevant for mild retrolisthesis of L4 vertebrae. CT imaging was performed without IV contrast - patient is afebrile and without leukocytosis. CRP slightly elevated at 3. If spikes fevers, WBC goes up, will obtain CT LS with IV contrast. - Patient unable to undergo mri for full r/o of compression d/t pacemaker and aicd placement, however compression syndrome seems very unlikely in this patient as there are no red flag symptoms at time of my exam - Pain control with percocet, lidocaine patch - PT/OT eval 2. CAD - continue plavix, asa, nitroglycerin 3. Hx a-fib - continue amiodarone, digoxin 4. HTN - continue entresto, lasix, carvedilol 5. urinary frequency s/p prostatectomy - continue tolteradine 6. HLD - continue atorvastatin 7. Dementia - continue donepezil DVT prophylaxis - patient on plavix and asa VS, I&O, 24H, Fishbone Vital Signs/I&O Vital Signs Date Time Temp Pulse Resp B/P (MAP) Pulse Ox O2 Delivery O2 Flow Rate FiO2 10/11/20 08:30 97.1 60 16 123/66 (85) 96 Room Air I&O- Last 24 Hours up to 6 AM 10/11/20 06:00 Intake Total 120 ml Output Total 500 ml Balance -380 ml Laboratory Data 24H LABS Laboratory Tests 2 10/10/20 20:09: Coronavirus (COVID-19)(PCR) NEGATIVE, Influenza Type A (RT-PCR) NEGATIVE, Influenza Type B (RT-PCR) NEGATIVE, Respiratory Syncytial Virus (PCR) NEGATIVE 10/11/20 07:00: Immature Granulocyte % (Auto) 0.5, Neutrophils (%) (Auto) 62.0, Lymphocytes (%) (Auto) 17.7L, Monocytes (%) (Auto) 14.3H, Eosinophils (%) (Auto) 4.3H, Basophils (%) (Auto) 1.2H, Neutrophils # (Auto) 3.6, Lymphocytes # (Auto) 1.0L, Monocytes # (Auto) 0.8, Eosinophils # (Auto) 0.3, Basophils # (Auto) 0.1, Nucleated Red Blood Cells % (auto) 0.0, Prothrombin Time 14.6H, Prothromb Time International Ratio 1.12, Activated Partial Thromboplast Time 37.5, Anion Gap 10, Glomerular Filtration Rate > 60.0, Calcium Level 8.7L, Magnesium Level 2.2, Total Bilirubin 0.9, Aspartate Amino Transf (AST/SGOT) 17, Alanine Aminotransferase (ALT/SGPT) 19, Alkaline Phosphatase 72, C-Reactive Protein, Quantitative 3.03H, Total Protein 6.1L, Albumin 3.2, Albumin/Globulin Ratio 1.1, Digoxin Level 1.1 CBC/BMP Laboratory Tests 10/11/20 07:00 SHANIKA AYALA MD Oct 11, 2020 12:50
[2020-10-11 14:00] VITALS: BP 125/68
[2020-10-11] MEDS: **NOTE PATIENT COMMENT** MISC XX SCH (20:26)
[2020-10-11 21:00] VITALS: BP 90/44
[2020-10-11] MEDS: FUROSEMIDE 20 MG TAB PO SCH (21:00)
[2020-10-11] MEDS: DONEPEZIL 5 MG TAB PO SCH (21:00)
[2020-10-11] MEDS: CARVedilol 3.125 MG TAB PO SCH (21:00)
[2020-10-11] MEDS: DIGOXIN 0.25 MG TAB PO SCH (21:19)
[2020-10-12 06:00] VITALS: BP 126/65
[2020-10-12] MEDS: ENTRESTO 24-26MG TABLET (SACUBITRIL/VALSARTAN) PO SCH ×2 (08:14→22:09)
[2020-10-12] MEDS: ASPIRIN 81MG ENTERIC TABLET PO SCH (08:14)
[2020-10-12] MEDS: ATORVASTATIN 20 MG TAB PO SCH (08:14)
[2020-10-12] MEDS: CLOPIDOGREL 75 MG TAB PO SCH (08:14)
[2020-10-12] MEDS: DOCUSATE SODIUM 100MG CAPSULE PO SCH ×2 (08:14→21:00)
[2020-10-12] MEDS: AMIODARONE 200 MG TAB (PACERONE) PO SCH (08:17)
[2020-10-12] MEDS: LIDOCAINE 5% (LIDODERM) PATCH TD SCH (08:17)
[2020-10-12] MEDS: PERCOCET 5MG/325MG TAB PO PRN ×2 (08:17→15:19)
[2020-10-12 08:49] LABS: BASO # 0.1 10^3/uL (0.0-0.2); BASO % 0.9 % (0.0-1.0); EOS # 0.2 10^3/uL (0.0-0.5); HEMATOCRIT 46.2 % (42.0-52.0); LYMPH # 1.1 10^3/uL (1.5-5.0); LYMPH % 13.8 % (24.0-44.0); MEAN CORPUSCULAR HEMOGLOBIN 31.4 pg (27.0-33.0); MEAN CORPUSCULAR HGB CONC 32.5 g/dl (32.0-36.5); MEAN CORPUSCULAR VOLUME 96.7 fl (80.0-96.0); MONO # 0.6 10^3/uL (0.0-0.8); MONO % 7.4 % (2.0-8.0); NEUTROPHILS # 5.9 10^3/uL (1.5-8.5); NEUTROPHILS % 74.5 % (36.0-66.0); PLATELET COUNT, AUTOMATED 246 10^3/uL (150-450); RED BLOOD COUNT 4.78 10^6/uL (4.30-6.10); WHITE BLOOD COUNT 7.9 10^3/uL (4.0-10.0)
[2020-10-12 09:13] LABS: ERYTHROCYTE SEDIMENTATION RATE 16 mm/hr (0-20)
[2020-10-12 09:20] LABS: BLOOD UREA NITROGEN 24 MG/DL (7-18); C REACTIVE PROTEIN QUANTITATIV 2.65 MG/DL (0.00-0.30); CALCIUM LEVEL 8.5 MG/DL (8.8-10.2); CARBON DIOXIDE LEVEL 28 MEQ/L (21-32); CHLORIDE LEVEL 105 MEQ/L (98-107); CREATININE FOR GFR 1.23 MG/DL (0.70-1.30); GLOMERULAR FILTRATION RATE > 60.0 (>42); GLUCOSE, FASTING 151 MG/DL (70-100); POTASSIUM SERUM 3.8 MEQ/L (3.5-5.1); SODIUM LEVEL 141 MEQ/L (136-145)
[2020-10-12] MEDS: TOLTERODINE TARTRATE 2 MG LA CAP (DETROL LA) PO SCH (10:44)
[2020-10-12] MEDS: MOM 30ML SUSPENSION UDC PO PRN (12:54)
[2020-10-12 14:00] VITALS: BP 104/60
--- NOTE | 2020-10-12 14:58 | IPNPDOC ---
Date Seen The patient was seen on 10/12/20. Progress Note SUBJECTIVE: Patient was seen and examined at bedside. Acute events overnight. He continues to report severe lumbar back pain upon flexion and extension of the back. Nausea has resolved. Normal movement and sensation of bilateral lower extremities. denies chest pain, palpitations, n/v/d. OBJECTIVE PHYSICAL EXAMINATION: VITAL SIGNS: please see below General: NAD, comfortable HEENT: PERRLA, EOMI, sclerae clear Neck: supple, normal ROM, no JVD Respiratory: lungs CTAB, no wheeze, no rales, no crackles CVS: RRR, normal S1, S2, no murmurs Abdo: soft, no masses, no hepatosplenomegaly, BS+, no rebound tenderness Extremities: no edema, pulses 2+ MSK: No significant pain to outpatient of spinal column. Mild tenderness to palpation of the paraspinal muscles in the lumbar area. Neuro: no focal neuro deficits, moving all 4 extremities, CN2-12 intact. Strength 5/5 in all 4 extremities. No nystagmus. , No loss of sensation. No paresthesias. Psych: calm, cooperative, AAO x 3 LABORATORY DATA, IMAGING STUDIES, MICROBIOLOGY: Please see below. DVT prophylaxis ordered?: SCDs and TEDs. ASSESSMENT AND PLAN: 75 from [place] with history of CAD status post stenting, cardiac arrest, status post AICD placement, prostate cancer status post prostatectomy as well as hypertension, hyperlipidemia. Patient presented to ER complaining of severe lumbar back pain for the past 5 days. Denies any history of injury, falls, spinal surgery. PROBLEMS: 1. Lumbar back pain suspect 2/2 lumbar radiculopathy - CT imaging is only relevant for mild retrolisthesis of L4 vertebrae. CT imaging was performed without IV contrast - patient is afebrile and without leukocytosis. CRP slightly elevated at 3. If spikes fevers, WBC goes up, will obtain CT LS with IV contrast. - Patient unable to undergo mri for full r/o of compression d/t pacemaker and aicd placement, however compression syndrome seems very unlikely in this patient as there are no red flag symptoms at time of my exam - Pain control with percocet, lidocaine patch - PT/OT eval: patient still unable to ambulate fully, needs ongoing PT - CRP trending down, no fever, no WBC 2. CAD - continue plavix, asa, nitroglycerin 3. Hx a-fib - continue amiodarone, digoxin 4. HTN - continue entresto, lasix, carvedilol 5. urinary frequency s/p prostatectomy - continue tolteradine 6. HLD - continue atorvastatin 7. Dementia - continue donepezil DVT prophylaxis - patient on plavix and asa VS, I&O, 24H, Fishbone Vital Signs/I&O Vital Signs Date Time Temp Pulse Resp B/P (MAP) Pulse Ox O2 Delivery O2 Flow Rate FiO2 10/12/20 08:47 17 Room Air 10/12/20 06:00 97.4 60 126/65 (85) 96 I&O- Last 24 Hours up to 6 AM 10/12/20 06:00 Intake Total 960 ml Output Total 875 ml Balance 85 ml Laboratory Data 24H LABS Laboratory Tests 2 10/12/20 08:36: Immature Granulocyte % (Auto) 0.4, Neutrophils (%) (Auto) 74.5H, Lymphocytes (%) (Auto) 13.8L, Monocytes (%) (Auto) 7.4, Eosinophils (%) (Auto) 3.0, Basophils (%) (Auto) 0.9, Neutrophils # (Auto) 5.9, Lymphocytes # (Auto) 1.1L, Monocytes # (Auto) 0.6, Eosinophils # (Auto) 0.2, Basophils # (Auto) 0.1, Nucleated Red Blood Cells % (auto) 0.0, Erythrocyte Sedimentation Rate 16, Anion Gap 8, Glomerular Filtration Rate > 60.0, Calcium Level 8.5L, C-Reactive Protein, Quantitative 2.65H CBC/BMP Laboratory Tests 10/12/20 08:36 SHANIKA AYALA MD Oct 12, 2020 14:58
[2020-10-12] MEDS: DONEPEZIL 5 MG TAB PO SCH (21:00)
[2020-10-12] MEDS: CARVedilol 3.125 MG TAB PO SCH (21:00)
[2020-10-12] MEDS: FUROSEMIDE 20 MG TAB PO SCH (21:00)
[2020-10-12] MEDS: **NOTE PATIENT COMMENT** MISC XX SCH (21:00)
[2020-10-12] MEDS: DIGOXIN 0.25 MG TAB PO SCH (21:00)
[2020-10-12 22:00] VITALS: BP 107/61
[2020-10-13] MEDS: MOM 30ML SUSPENSION UDC PO PRN ×2 (00:05→16:24)
[2020-10-13] MEDS: ACETAMINOPHEN TAB 650MG DOSE (2X325MG) PO PRN ×2 (00:06→21:51)
[2020-10-13 06:18] VITALS: BP 95/51
[2020-10-13] MEDS: DOCUSATE SODIUM 100MG CAPSULE PO SCH ×2 (08:08→21:46)
[2020-10-13] MEDS: ATORVASTATIN 20 MG TAB PO SCH (08:08)
[2020-10-13] MEDS: ENTRESTO 24-26MG TABLET (SACUBITRIL/VALSARTAN) PO SCH ×2 (08:08→21:47)
[2020-10-13] MEDS: TOLTERODINE TARTRATE 2 MG LA CAP (DETROL LA) PO SCH (08:08)
[2020-10-13] MEDS: ASPIRIN 81MG ENTERIC TABLET PO SCH (08:08)
[2020-10-13] MEDS: LIDOCAINE 5% (LIDODERM) PATCH TD SCH (08:09)
[2020-10-13] MEDS: PERCOCET 5MG/325MG TAB PO PRN ×2 (08:10→16:25)
--- NOTE | 2020-10-13 11:37 | IPNPDOC ---
Date Seen The patient was seen on 10/13/20. Progress Note SUBJECTIVE: Patient was seen and examined at bedside. Acute events overnight. He continues to report severe lumbar back pain upon flexion and extension of the back. Nausea has resolved. Normal movement and sensation of bilateral lower extremities. denies chest pain, palpitations, n/v/d. BP this morning 95/51, but on repeat 128/76. OBJECTIVE PHYSICAL EXAMINATION: VITAL SIGNS: please see below General: NAD, comfortable HEENT: PERRLA, EOMI, sclerae clear Neck: supple, normal ROM, no JVD Respiratory: lungs CTAB, no wheeze, no rales, no crackles CVS: RRR, normal S1, S2, no murmurs Abdo: soft, no masses, no hepatosplenomegaly, BS+, no rebound tenderness Extremities: no edema, pulses 2+ MSK: No significant pain to outpatient of spinal column. Mild tenderness to palpation of the paraspinal muscles in the lumbar area. Neuro: no focal neuro deficits, moving all 4 extremities, CN2-12 intact. Strength 5/5 in all 4 extremities. No nystagmus. , No loss of sensation. No paresthesias. Psych: calm, cooperative, AAO x 3 LABORATORY DATA, IMAGING STUDIES, MICROBIOLOGY: Please see below. DVT prophylaxis ordered?: SCDs and TEDs. ASSESSMENT AND PLAN: 75 from [place] with history of CAD status post stenting, cardiac arrest, status post AICD placement, prostate cancer status post prostatectomy as well as hypertension, hyperlipidemia. Patient presented to ER complaining of severe lumbar back pain for the past 5 days. Denies any history of injury, falls, spinal surgery. PROBLEMS: 1. Lumbar back pain suspect 2/2 lumbar radiculopathy - CT imaging is only relevant for mild retrolisthesis of L4 vertebrae. CT imaging was performed without IV contrast - patient is afebrile and without leukocytosis. CRP slightly elevated at 3. If spikes fevers, WBC goes up, will obtain CT LS with IV contrast. - Patient unable to undergo mri for full r/o of compression d/t pacemaker and aicd placement, however compression syndrome seems very unlikely in this patient as there are no red flag symptoms at time of my exam - Pain control with percocet, lidocaine patch - PT/OT eval: patient still unable to ambulate fully, needs ongoing PT. Possible plan for DC tomorrow, if able to navigate steps at home. - pain has improvement markedly - CRP trending down, no fever, no WBC 2. CAD - continue plavix, asa, nitroglycerin 3. Hx a-fib - continue amiodarone, digoxin 4. HTN - continue entresto, lasix, carvedilol - bp was low in am, but on repeat corrected. - suspect error - check orthostatic BP 5. urinary frequency s/p prostatectomy - continue tolteradine 6. HLD - continue atorvastatin 7. Dementia - continue donepezil DVT prophylaxis - patient on plavix and asa VS, I&O, 24H, Fishbone Vital Signs/I&O Vital Signs Date Time Temp Pulse Resp B/P (MAP) Pulse Ox O2 Delivery O2 Flow Rate FiO2 10/13/20 08:45 18 10/13/20 06:18 98.6 64 95/51 (66) 95 Room Air I&O- Last 24 Hours up to 6 AM 10/13/20 06:00 Intake Total 1200 ml Output Total 350 ml Balance 850 ml SHANIKA YAALA MD Oct 13, 2020 11:36
[2020-10-13 14:05] VITALS: BP_SYST 102; BP_SYST 122; BP_SYST 124; BP_DIAS 54; BP_DIAS 63; BP_DIAS 71
[2020-10-13 21:00] VITALS: BP_SYST 116; BP_SYST 123; BP_SYST 126; BP_DIAS 66; BP_DIAS 69; BP_DIAS 70
[2020-10-13] MEDS: **NOTE PATIENT COMMENT** MISC XX SCH (21:42)
[2020-10-13] MEDS: FUROSEMIDE 20 MG TAB PO SCH (21:46)
[2020-10-13] MEDS: DONEPEZIL 5 MG TAB PO SCH (21:46)
[2020-10-13] MEDS: CARVedilol 3.125 MG TAB PO SCH (21:47)
[2020-10-13] MEDS: DIGOXIN 0.25 MG TAB PO SCH (21:47)
[2020-10-13 22:00] VITALS: BP 116/66
[2020-10-14 06:00] VITALS: BP_SYST 101; BP_SYST 110; BP_SYST 96; BP_DIAS 52; BP_DIAS 60; BP_DIAS 70
[2020-10-14] MEDS: PERCOCET 5MG/325MG TAB PO PRN (06:48)
[2020-10-14] MEDS: LIDOCAINE 5% (LIDODERM) PATCH TD SCH (08:36)
[2020-10-14] MEDS: ASPIRIN 81MG ENTERIC TABLET PO SCH (08:36)
[2020-10-14] MEDS: TOLTERODINE TARTRATE 2 MG LA CAP (DETROL LA) PO SCH (08:36)
[2020-10-14] MEDS: ENTRESTO 24-26MG TABLET (SACUBITRIL/VALSARTAN) PO SCH ×2 (08:36→22:34)
[2020-10-14] MEDS: CLOPIDOGREL 75 MG TAB PO SCH (08:37)
[2020-10-14] MEDS: AMIODARONE 200 MG TAB (PACERONE) PO SCH (08:37)
[2020-10-14] MEDS: DOCUSATE SODIUM 100MG CAPSULE PO SCH ×2 (08:37→22:34)
[2020-10-14] MEDS: ATORVASTATIN 20 MG TAB PO SCH (08:37)
--- NOTE | 2020-10-14 13:51 | IPNPDOC ---
Date Seen The patient was seen on 10/14/20. Progress Note SUBJECTIVE: Patient was seen and examined at bedside. Acute events overnight. He continues to report severe lumbar back pain upon flexion and extension of the back. Nausea has resolved. Normal movement and sensation of bilateral lower extremities. denies chest pain, palpitations, n/v/d. OBJECTIVE PHYSICAL EXAMINATION: VITAL SIGNS: please see below General: NAD, comfortable HEENT: PERRLA, EOMI, sclerae clear Neck: supple, normal ROM, no JVD Respiratory: lungs CTAB, no wheeze, no rales, no crackles CVS: RRR, normal S1, S2, no murmurs Abdo: soft, no masses, no hepatosplenomegaly, BS+, no rebound tenderness Extremities: no edema, pulses 2+ MSK: No significant pain to outpatient of spinal column. Mild tenderness to palpation of the paraspinal muscles in the lumbar area. Neuro: no focal neuro deficits, moving all 4 extremities, CN2-12 intact. Strength 5/5 in all 4 extremities. No nystagmus. , No loss of sensation. No paresthesias. Psych: calm, cooperative, AAO x 3 LABORATORY DATA, IMAGING STUDIES, MICROBIOLOGY: Please see below. DVT prophylaxis ordered?: SCDs and TEDs. ASSESSMENT AND PLAN: 75 from [place] with history of CAD status post stenting, cardiac arrest, status post AICD placement, prostate cancer status post prostatectomy as well as hypertension, hyperlipidemia. Patient presented to ER complaining of severe lumbar back pain for the past 5 days. Denies any history of injury, falls, spinal surgery. PROBLEMS: 1. Lumbar back pain suspect 2/2 lumbar radiculopathy - CT imaging is only relevant for mild retrolisthesis of L4 vertebrae. CT imaging was performed without IV contrast - patient is afebrile and without leukocytosis. CRP slightly elevated at 3. If spikes fevers, WBC goes up, will obtain CT LS with IV contrast. - Patient unable to undergo mri for full r/o of compression d/t pacemaker and aicd placement, however compression syndrome seems very unlikely in this patient as there are no red flag symptoms at time of my exam - Pain control with percocet, lidocaine patch - PT/OT eval: patient still unable to ambulate fully, needs ongoing PT. Possible plan for DC tomorrow, if able to navigate steps at home. - pain has improvement markedly - CRP trending down, no fever, no WBC 2. CAD - continue plavix, asa, nitroglycerin 3. Hx a-fib - continue amiodarone, digoxin 4. HTN - continue entresto, lasix, carvedilol - bp was low in am, but on repeat corrected. - suspect error - check orthostatic BP - positive for orthostasis on 10/13/20, resolved - add compressions stockings 5. urinary frequency s/p prostatectomy - continue tolteradine 6. HLD - continue atorvastatin 7. Dementia - continue donepezil DVT prophylaxis - patient on plavix and asa VS, I&O, 24H, Fishbone Vital Signs/I&O Vital Signs Date Time Temp Pulse Resp B/P (MAP) Pulse Ox O2 Delivery O2 Flow Rate FiO2 10/14/20 07:18 18 10/14/20 06:00 61 110/70 (83) 64 101/60 (74) 68 96/52 (67) 10/13/20 22:00 98.0 97 Room Air I&O- Last 24 Hours up to 6 AM 10/14/20 06:00 Intake Total 1790 ml Output Total 353 ml Balance 1437 ml SHANIKA AYALA MD Oct 14, 2020 13:51
[2020-10-14 14:00] VITALS: BP_SYST 122; BP_SYST 138; BP_SYST 148; BP_DIAS 72; BP_DIAS 74; BP_DIAS 78
[2020-10-14] MEDS: FUROSEMIDE 20 MG TAB PO SCH (21:00)
[2020-10-14] MEDS: **NOTE PATIENT COMMENT** MISC XX SCH (21:00)
[2020-10-14] MEDS: CARVedilol 3.125 MG TAB PO SCH (21:00)
[2020-10-14 22:00] VITALS: BP 100/58
[2020-10-14] MEDS: ACETAMINOPHEN TAB 650MG DOSE (2X325MG) PO PRN (22:34)
[2020-10-14] MEDS: DONEPEZIL 5 MG TAB PO SCH (22:34)
[2020-10-14] MEDS: DIGOXIN 0.25 MG TAB PO SCH (22:34)
[2020-10-15 06:00] VITALS: BP 133/81
[2020-10-15] MEDS: LIDOCAINE 5% (LIDODERM) PATCH TD SCH (08:47)
[2020-10-15] MEDS: DOCUSATE SODIUM 100MG CAPSULE PO SCH ×2 (08:48→20:36)
[2020-10-15] MEDS: ATORVASTATIN 20 MG TAB PO SCH (08:48)
[2020-10-15] MEDS: ASPIRIN 81MG ENTERIC TABLET PO SCH (08:48)
[2020-10-15] MEDS: TOLTERODINE TARTRATE 2 MG LA CAP (DETROL LA) PO SCH (08:48)
[2020-10-15] MEDS: ACETAMINOPHEN 500 MG TAB PO PRN ×2 (08:49→15:16)
[2020-10-15] MEDS: MOM 30ML SUSPENSION UDC PO PRN (08:50)
[2020-10-15] MEDS: ENTRESTO 24-26MG TABLET (SACUBITRIL/VALSARTAN) PO SCH ×2 (08:50→20:35)
[2020-10-15 08:51] VITALS: BP 114/65
[2020-10-15 12:00] VITALS: BP_SYST 109; BP_SYST 116; BP_DIAS 70; BP_DIAS 73; BP_DIAS 74
[2020-10-15 14:00] VITALS: BP 118/73
[2020-10-15 20:36] VITALS: BP 122/72
[2020-10-15] MEDS: DONEPEZIL 5 MG TAB PO SCH (20:36)
[2020-10-15] MEDS: DIGOXIN 0.25 MG TAB PO SCH (20:36)
[2020-10-15] MEDS: CARVedilol 3.125 MG TAB PO SCH (20:36)
[2020-10-15] MEDS: FUROSEMIDE 20 MG TAB PO SCH (20:36)
--- NOTE | 2020-10-15 20:36 | IPNPDOC ---
Date Seen The patient was seen on 10/15/20. Progress Note SUBJECTIVE: Patient was seen and examined at bedside. Acute events overnight. He continues to report severe lumbar back pain upon flexion and extension of the back. Nausea has resolved. Normal movement and sensation of bilateral lower extremities. denies chest pain, palpitations, n/v/d. OBJECTIVE PHYSICAL EXAMINATION: VITAL SIGNS: please see below General: NAD, comfortable HEENT: PERRLA, EOMI, sclerae clear Neck: supple, normal ROM, no JVD Respiratory: lungs CTAB, no wheeze, no rales, no crackles CVS: RRR, normal S1, S2, no murmurs Abdo: soft, no masses, no hepatosplenomegaly, BS+, no rebound tenderness Extremities: no edema, pulses 2+ MSK: No significant pain to outpatient of spinal column. Mild tenderness to palpation of the paraspinal muscles in the lumbar area. Neuro: no focal neuro deficits, moving all 4 extremities, CN2-12 intact. Strength 5/5 in all 4 extremities. No nystagmus. , No loss of sensation. No paresthesias. Psych: calm, cooperative, AAO x 3 LABORATORY DATA, IMAGING STUDIES, MICROBIOLOGY: Please see below. DVT prophylaxis ordered?: SCDs and TEDs. ASSESSMENT AND PLAN: 75 from [place] with history of CAD status post stenting, cardiac arrest, status post AICD placement, prostate cancer status post prostatectomy as well as hypertension, hyperlipidemia. Patient presented to ER complaining of severe lumbar back pain for the past 5 days. Denies any history of injury, falls, spinal surgery. PROBLEMS: 1. Lumbar back pain suspect 2/2 lumbar radiculopathy - CT imaging is only relevant for mild retrolisthesis of L4 vertebrae. CT imaging was performed without IV contrast - patient is afebrile and without leukocytosis. CRP slightly elevated at 3. If spikes fevers, WBC goes up, will obtain CT LS with IV contrast. - Patient unable to undergo mri for full r/o of compression d/t pacemaker and aicd placement, however compression syndrome seems very unlikely in this patient as there are no red flag symptoms at time of my exam - Pain control with percocet, lidocaine patch - PT/OT eval: patient still unable to ambulate fully, needs ongoing PT. Possible plan for DC tomorrow, if able to navigate steps at home. - pain has improvement markedly - CRP trending down, no fever, no WBC 2. CAD - continue plavix, asa, nitroglycerin 3. Hx a-fib - continue amiodarone, digoxin 4. HTN - continue entresto, lasix, carvedilol - bp was low in am, but on repeat corrected. - suspect error - check orthostatic BP - positive for orthostasis on 10/13/20, resolved - add compressions stockings 5. urinary frequency s/p prostatectomy - continue tolteradine 6. HLD - continue atorvastatin 7. Dementia - continue donepezil 8. Orthostatic hypotension - resolved after DC oxydone, compression stocking application. DVT prophylaxis - patient on plavix and asa Dispo: ARU screen placed. VS, I&O, 24H, Fishbone Vital Signs/I&O Vital Signs Date Time Temp Pulse Resp B/P (MAP) Pulse Ox O2 Delivery O2 Flow Rate FiO2 10/15/20 14:00 97.5 72 14 118/73 (88) 98 Room Air I&O- Last 24 Hours up to 6 AM0 10/15/20 06:00 Intake Total 1950 ml Output Total 0 ml Balance 1950 ml SHANIKA AYALA MD Oct 15, 2020 20:36
[2020-10-15] MEDS: **NOTE PATIENT COMMENT** MISC XX SCH (20:37)
[2020-10-15 22:00] VITALS: BP 122/72
[2020-10-16 06:00] VITALS: BP 106/63
[2020-10-16] MEDS: ASPIRIN 81MG ENTERIC TABLET PO SCH (08:37)
[2020-10-16] MEDS: LIDOCAINE 5% (LIDODERM) PATCH TD SCH (08:37)
[2020-10-16] MEDS: ENTRESTO 24-26MG TABLET (SACUBITRIL/VALSARTAN) PO SCH (08:37)
[2020-10-16] MEDS: DOCUSATE SODIUM 100MG CAPSULE PO SCH (08:38)
[2020-10-16] MEDS: TOLTERODINE TARTRATE 2 MG LA CAP (DETROL LA) PO SCH (08:38)
[2020-10-16] MEDS: ATORVASTATIN 20 MG TAB PO SCH (08:38)
[2020-10-16] MEDS: AMIODARONE 200 MG TAB (PACERONE) PO SCH (08:38)
[2020-10-16] MEDS: CLOPIDOGREL 75 MG TAB PO SCH (08:38)
--- NOTE | 2020-10-16 13:07 | DS.PDOC ---
Discharge Summary General Date of Admission Oct 13, 2020 at 14:29 Date of Discharge 10/16/20 Discharge Summary PROCEDURES PERFORMED DURING STAY: [None]. COMPLICATIONS/CHIEF COMPLAINT: Low Pack Pain. HISTORY OF PRESENT ILLNESS: This is a 75 y/o male with a pmh of CAD s/p stent placement, cardiac arrest s/p AICD placement, prostate ca s/p prostatectomy, htn and hld who presents to our ed with a cc of severe lower back pain x5 days. Patient believes the pain started after a day of yardwork. Patient was seen in our ED yesterday 10/09 with the same complaint. Patient at that time had pain relief with lidocaine patch placed in ED and workup done at that time was negative for red flag spinal symptoms or acute pathology on ct scan. Patient states that he went home and his pain returned overnight and was barely able to make it out of bed due to his pain. Patient states that his pain is located in his lower spine and does not radiate. Patient states that he has many stairs at home and fears he is unable to get up and down them easily with his pain. Patien t states that he has been active by doing yard work until his back began to ache. Patient denies paresthesias, saddle anesthesia, paralysis, new onset incontinence, inability to feel temperature in the lower extremities, chest pain, sob, fever, chills, n/v/d/c. HOSPITAL COURSE: 1. Lumbar back pain suspect 2/2 lumbar radiculopathy - CT imaging is only relevant for mild retrolisthesis of L4 vertebrae. CT imaging was performed without IV contrast - patient remained afebrile and without leukocytosis. CRP slightly elevated at 3. - Patient unable to undergo mri for full r/o of compression d/t pacemaker and aicd placement, however compression syndrome seems very unlikely in this patient as there are no red flag symptoms at time of my exam. Patient is neurologically intact. - Pain control with percocet, lidocaine patch - PT/OT eval: PT recommending home PT, use of RW at home. - pain has improvement markedly 2. CAD - continue plavix, asa, nitroglycerin 3. Hx a-fib - continue amiodarone, digoxin - at this point I was unable to determine whether the patient truly has a hx of afib, as chart review does not show any reports of such. It was however documented on admission. 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 4. HTN - continue entresto, lasix, carvedilol - BP low after pain med administration. - check orthostatic BP - positive for orthostasis on 10/13/20, resolved - added compressions stockings, taper down opiates 5. urinary frequency s/p prostatectomy - continue tolteradine 6. HLD - continue atorvastatin 7. Dementia - continue donepezil - patient has been having some short term memory issues according to him and his daughter. Per daughter, he is at baseline, and cares for himself and his - he has good family support at home. 8. Orthostatic hypotension - resolved after DC oxydone, compression stocking application. DISCHARGE MEDICATIONS: Please see below. ALLERGIES: Please see below. PHYSICAL EXAMINATION ON DISCHARGE: VITAL SIGNS: please see below General: NAD, comfortable HEENT: PERRLA, EOMI, sclerae clear Neck: supple, normal ROM, no JVD Respiratory: lungs CTAB, no wheeze, no rales, no crackles CVS: RRR, normal S1, S2, no murmurs Abdo: soft, no masses, no hepatosplenomegaly, BS+, no rebound tenderness Extremities: no edema, pulses 2+ MSK: No significant pain to outpatient of spinal column. Mild tenderness to palpation of the paraspinal muscles in the lumbar area. Neuro: no focal neuro deficits, moving all 4 extremities, CN2-12 intact. Strength 5/5 in all 4 extremities. No nystagmus. , No loss of sensation. No paresthesias. Psych: calm, cooperative, AAO x 3 LABORATORY DATA: Please see below. IMAGING: Chest CT: FINDINGS: Tubes, catheters and devices: Left chest cardiac device. Thyroid: Right thyroid nodule measures 8 mm. Lungs: Mild scarring at the lung apices. There is emphysema with upper lobe predominance. There are mild bilateral posterior dependent changes. There are small nodular foci of ground-glass density involving both lungs. These measure up to 6 mm. No ramon alveolar consolidation. Pleural spaces: Unremarkable. No pneumothorax. No pleural effusion. Heart: Coronary artery calcification. Aorta: Aortic calcification without aneurysm. Lymph nodes: Unremarkable. No enlarged lymph nodes. Kidneys and ureters: Left renal cyst measures at least 7.7 cm, incompletely visualized. Bones/joints: Unremarkable. No acute fracture. Soft tissues: Unremarkable. IMPRESSION: 1. No acute traumatic abnormality. 2. There are multifocal nodular foci of ground-glass density measuring up to [address] Chest at 3-6 months. Subsequent management based on the most suspicious nodule(s). (Reference: [place]) 3. Additional findings as above. CT Lumbar spine: FINDINGS: Vertebrae: Mild retrolisthesis of L4 on L5. Vertebral body heights are preserved. Moderate prevertebral osteophytosis. There are bilateral facet joint degenerative changes. No acute lumbar spine fracture. Discs/Spinal canal/Neural foramina: No definite high-grade central canal stenosis within limitations of technique. Multilevel foraminal stenoses. Kidneys and ureters: Large left renal cyst is incompletely visualized. Vasculature: Vascular calcification. Soft tissues: See "Vertebrae" finding. IMPRESSION: No acute lumbar spine fracture. Thoracic spine ct: FINDINGS: Vertebrae: Vertebral body height and AP alignment is preserved. Small sclerotic focus at T6, probably enostosis. Mild prevertebral osteophytosis. There are facet joint degenerative changes. No acute thoracic spine fracture. No osseous destruction. Discs/Spinal canal/Neural foramina: No definite significant central canal stenosis within limitations of technique. Soft tissues: See "Vertebrae" finding. Lungs: Lungs are better evaluated on dedicated examination. IMPRESSION: No acute osseous abnormality. PROGNOSIS: good ACTIVITY: home PT. RW use. DIET: 2g sodium DISCHARGE PLAN: DC home with home services including physical therapy. Pain control, focusing on acetaminophen, with judicious use of oxycodone, advised to take prior to bed if severe pain. DISPOSITION: home with services DISCHARGE INSTRUCTIONS: 1. Follow up with PCP 2-5 days 2. Follow up with cardiology 1-2 weeks. 3. Please take medications as prescribed. 4. If you develop worsening pain, falling, weakness, chest pain, shortness of breath, fevers, chills, or otherwise worsening of your symptoms, please call 911 or return to the nearest emergency room. DISCHARGE CONDITION: Stable TIME SPENT ON DISCHARGE: 35 minutes Vital Signs/I&Os Vital Signs Date Time Temp Pulse Resp B/P (MAP) Pulse Ox O2 Delivery O2 Flow Rate FiO2 10/16/20 06:00 97.4 64 16 106/63 (77) 98 Room Air I&O- Last 24 Hours up to 6 AM 10/16/20 06:00 Intake Total 1910 ml Output Total 0 ml Balance 1910 ml Discharge Medications Scheduled Amiodarone HCl (Amiodarone HCl) 200 Mg Tab, 200 MG PO Q2D, (Reported) Aspirin (Aspirin EC) 81 Mg Tablet.dr, 81 MG PO DAILY, (Reported) Atorvastatin Calcium (Atorvastatin Calcium) 40 Mg Tablet, 40 MG PO DAILY, (Reported) Bimatoprost (Lumigan) 0.01% 2.5ML Drops, 1 DROP OU QHS, (Reported) Carvedilol (Carvedilol) 3.125 Mg Tab, 3.125 MG PO QHS, (Reported) Clopidogrel Bisulfate (Clopidogrel) 75 Mg Tablet, 75 MG PO Q2D, (Reported) Digoxin (Digoxin) 250 Mcg Tab, 250 MCG PO QHS, (Reported) Docusate Sodium (Dok) 100 Mg Capsule, 100 MG PO BID Donepezil HCl (Donepezil HCl) 5 Mg Tablet, 5 MG PO QHS, (Reported) Furosemide (Furosemide) 40 Mg Tablet, 20 MG PO QHS, (Reported) Sacubitril/Valsartan (Entresto 24 mg-26 mg Tablet) 1 Each Tablet, 1 TAB PO BID, (Reported) Tolterodine Tartrate (Tolterodine Tartrate ER) 4 Mg Cap, 4 MG PO DAILY, (Reported) Scheduled PRN Acetaminophen (Acetaminophen) 500 Mg Tablet, 1,000 MG PO Q6HP PRN for MODERATE PAIN (PS 5-7) Nitroglycerin (Nitroglycerin) 0.4 Mg Tab.subl, 0.4 MG SL NITRO PRN for CHEST PAIN, (Reported) Allergies Coded Allergies: ciprofloxacin (Verified Allergy, Unknown, 10/27/20) sulfamethoxazole (Verified Allergy, Unknown, 10/27/20) trimethoprim (Verified Allergy, Unknown, 10/27/20) SHANIKA AYALA MD Oct 16, 2020 13:07
[2020-10-16] MEDS ORDERED: SENN1TAB41 PO (13:13)
[2020-10-16] MEDS ORDERED: ACET-683 PO (13:13)
[2020-10-16] MEDS ORDERED: DOK1CAP7 PO (13:13)
[2020-10-16] MEDS ORDERED: OXYC-517 PO (13:13)
[2020-10-16 13:53] LABS: BASO # 0.1 10^3/uL (0.0-0.2); BASO % 1.1 % (0.0-1.0); EOS # 0.3 10^3/uL (0.0-0.5); EOS % 3.4 % (0.0-3.0); HEMATOCRIT 49.6 % (42.0-52.0); LYMPH # 1.3 10^3/uL (1.5-5.0); MEAN CORPUSCULAR HEMOGLOBIN 31.2 pg (27.0-33.0); MEAN CORPUSCULAR HGB CONC 32.3 g/dl (32.0-36.5); MEAN CORPUSCULAR VOLUME 96.7 fl (80.0-96.0); MONO # 0.9 10^3/uL (0.0-0.8); MONO % 11.5 % (2.0-8.0); NEUTROPHILS # 5.3 10^3/uL (1.5-8.5); NEUTROPHILS % 66.7 % (36.0-66.0); PLATELET COUNT, AUTOMATED 289 10^3/uL (150-450); RED BLOOD COUNT 5.13 10^6/uL (4.30-6.10); WHITE BLOOD COUNT 7.9 10^3/uL (4.0-10.0)
[2020-10-16 14:18] LABS: ALBUMIN 3.8 GM/DL (3.2-5.2); ALT/SGPT 20 U/L (12-78); BILIRUBIN,TOTAL 0.8 MG/DL (0.2-1.0); BLOOD UREA NITROGEN 19 MG/DL (7-18); C REACTIVE PROTEIN QUANTITATIV 2.96 MG/DL (0.00-0.30); CALCIUM LEVEL 9.4 MG/DL (8.8-10.2); CARBON DIOXIDE LEVEL 27 MEQ/L (21-32); CHLORIDE LEVEL 108 MEQ/L (98-107); CREATININE FOR GFR 1.15 MG/DL (0.70-1.30); GLOMERULAR FILTRATION RATE > 60.0 (>42); GLUCOSE, FASTING 90 MG/DL (70-100); MAGNESIUM LEVEL 2.6 MG/DL (1.8-2.4); POTASSIUM SERUM 4.4 MEQ/L (3.5-5.1); SODIUM LEVEL 141 MEQ/L (136-145); TOTAL PROTEIN 7.3 GM/DL (6.4-8.2)
== END 2020-10-16 15:21 | disposition home health service (06) | DRG 552 ==
LOC: M ED 13:08 → M ED INP 13:09 → ENRESERV 10-11 04:50 → M MSPAV 10-11 08:26 → OBSVTOIN 10-13 14:29
PROVIDERS: ADMIT Internal Medicine; ATTEND Family Medicine
DX: M54.16 Radiculopathy, lumbar region (principal); I10 Essential (primary) hypertension; Z79.82 Long term (current) use of aspirin; Z79.899 Other long term (current) drug therapy; Z88.2 Allergy status to sulfonamides; Z88.8 Allergy status to other drugs, medicaments and biological substances; Z95.0 Presence of cardiac pacemaker; Z95.2 Presence of prosthetic heart valve; Z85.46 Personal history of malignant neoplasm of prostate; I25.10 Atherosclerotic heart disease of native coronary artery without angina pectoris; I48.91 Unspecified atrial fibrillation; F03.90 Unspecified dementia, unspecified severity, without behavioral disturbance, psychotic disturbance, mood disturbance, and anxiety; I95.1 Orthostatic hypotension; E78.5 Hyperlipidemia, unspecified; R35.0 Frequency of micturition

== ENCOUNTER → 2020-11-15 | Outpatient (CLI) | payer MEDICARE ==
[~2020-11-15] MED LIST changes: +ACET-683 PO; +ASPI1TAB8 PO; +BIMA01SOL OU; +DOK1CAP4 PO; +DONE5TAB82 PO; +OXYC-517 PO; +SENN1TAB41 PO
--- NOTE | 2020-11-15 08:11 | REP ---
INDICATION: HTN,COPD, PREOP. COMPARISON: 03/25/2018 TECHNIQUE: PA and lateral views FINDINGS: The lungs are clear. The heart is slightly enlarged. Dual pacing leads are in place. There is no failure The lungs are clear. Mediastinum, pleural surfaces and bony structures are No interval change compared to the previous study. IMPRESSION: No active process. No interval change. <Electronically signed by Héctor Browne > 11/15/20 0840
[2020-11-15 08:16] LABS: APPEARANCE, URINE CLEAR (CLEAR); BACTERIA, URINE AUTO NEGATIVE (NEGATIVE); BILIRUBIN, URINE AUTO NEGATIVE (NEGATIVE); BLOOD, URINE BLOOD 1+ (NEGATIVE); COLOR, URINE YELLOW (YELLOW); GLUCOSE, URINE (UA) AUTO NEGATIVE (NEGATIVE); HEMATOCRIT 41.7 % (42.0-52.0); HEMOGLOBIN 13.4 g/dl (13.5-17.5); KETONE, URINE AUTO NEGATIVE (NEGATIVE); LEUKOCYTE ESTERASE, URINE AUTO NEGATIVE (NEGATIVE); MEAN CORPUSCULAR HEMOGLOBIN 31.2 pg (27.0-33.0); MEAN CORPUSCULAR HGB CONC 32.1 g/dl (32.0-36.5); MEAN CORPUSCULAR VOLUME 97.2 fl (80.0-96.0); MUCUS, URINE SMALL (NEGATIVE); NITRITE, URINE AUTO NEGATIVE (NEGATIVE); PLATELET COUNT, AUTOMATED 206 10^3/uL (150-450); PROTEIN, URINE AUTO NEGATIVE (NEGATIVE); RBC, URINE AUTO 0 /HPF (0-3); RED BLOOD COUNT 4.29 10^6/uL (4.30-6.10); SPECIFIC GRAVITY URINE AUTO 1.019 (1.002-1.035); SQUAMOUS EPITHELIAL CELL UR AU 0 /HPF (0-6); UROBILINOGEN, URINE AUTO 0.2 mg/dL (0.0-2.0); WBC, URINE AUTO 0 /HPF (0-3); WHITE BLOOD COUNT 5.4 10^3/uL (4.0-10.0)
[2020-11-15 08:27] LABS: INR 0.99; PROTHROMBIN TIME 13.5 SECONDS (12.7-14.5)
[2020-11-15 08:42] LABS: ALBUMIN 3.6 GM/DL (3.2-5.2); ALT/SGPT 20 U/L (12-78); BILIRUBIN,TOTAL 0.5 MG/DL (0.2-1.0); BLOOD UREA NITROGEN 21 MG/DL (7-18); CALCIUM LEVEL 8.5 MG/DL (8.8-10.2); CARBON DIOXIDE LEVEL 26 MEQ/L (21-32); CHLORIDE LEVEL 112 MEQ/L (98-107); CHOLESTEROL LEVEL 171 MG/DL (<200); CREATININE FOR GFR 1.12 MG/DL (0.70-1.30); GLOMERULAR FILTRATION RATE > 60.0 (>42); GLUCOSE, FASTING 99 MG/DL (70-100); HDL CHOLESTEROL 45 MG/DL (>40); LDL CHOLESTEROL 93 MG/DL (<100); NON-HDL-C 126 MG/DL; POTASSIUM SERUM 3.7 MEQ/L (3.5-5.1); PROSTATIC SPECIFIC AG MONITOR < 0.01 NG/ML (< 4.00); SODIUM LEVEL 144 MEQ/L (136-145); TOTAL PROTEIN 6.4 GM/DL (6.4-8.2); TRIGLYCERIDES LEVEL 163 MG/DL (<150)
--- NOTE | 2020-11-15 08:45 | ECGEPIP ---
[facility] Test Date: 2020-11-15 Pat Name: EBONY TOLENTINO Department: Room: - Gender: Male Curriculum And Assessment Director: davidson : 1945 Requested By: Ximena Aguayo Order Number: [id number] Reading MD: Faisal Brooks Measurements Intervals Cherry Rate: 60 P: DE: 156 QRS: 193 QRSD: 184 T: 21 QT: 502 QTc: 502 Interpretive Statements consistent atrial and biventricular paced rhythm Slower rate and shorter AV delay from prior available tracing 03/25/18 which s shows sinus rhythm with first-degree AV block and left bundle branch block p pattern. Electronically Signed on 11-15-2020 8:45:22 EDT by Faisal Brooks
[2020-11-15 10:55] LABS: HEMOGLOBIN A1c 5.5 %
== END ==
LOC: M LAB 07:33
PROVIDERS: ATTEND Family Medicine
DX: Z01.818 Encounter for other preprocedural examination (principal); I10 Essential (primary) hypertension; J44.9 Chronic obstructive pulmonary disease, unspecified; Z79.899 Other long term (current) drug therapy

== ENCOUNTER → 2020-12-04 | Outpatient (CLI) | payer MEDICARE | LOC: M LABSMTC 09:08 | PROVIDERS: ATTEND Anesthesiology | DX: Z01.812 Encounter for preprocedural laboratory examination (principal) ==

== ENCOUNTER 2020-12-08 06:13 | Day surgery (SDC) | payer MEDICARE ==
[~2020-12-08] VITALS: Ht 188 cm; Wt 79.8 kg
[~2020-12-08 06:13] MED LIST changes: +LR 1,000 ML IV ONE; +ceFAZolin SOD 2 GM in IV 1 EA IV ONE
[2020-12-08] MEDS ORDERED: BUPIVACAINE/EPIN 0.25% 30 ML VIAL As Ordered ONE (07:19)
[2020-12-08] MEDS ORDERED: fentaNYL 250 MCG/5 ML INJECTION (J3010) As Ordered ONE (07:54)
[2020-12-08] MEDS ORDERED: dexameTHASONE 4 MG/ML 1ML VIAL (J1100 PER 1MG) As Ordered ONE (07:54)
[2020-12-08] MEDS ORDERED: propofoL 200 MG/20 ML VIAL As Ordered ONE (07:54)
[2020-12-08] MEDS ORDERED: ONDANSETRON 4MG/2ML VIAL As Ordered ONE (07:54)
[2020-12-08] MEDS ORDERED: ETOMIDATE INJ 20MG/10ML VIAL As Ordered ONE (07:54)
[2020-12-08] MEDS ORDERED: MIDAZOLAM INJ 2MG/2ML VIAL (J2250 PER 1MG) As Ordered ONE (07:54)
[2020-12-08] MEDS ORDERED: SUGAMMADEX SODIUM 500 MG/5 ML VIAL (BRIDION) As Ordered ONE (07:54)
[2020-12-08] MEDS ORDERED: PHENYLEPHRINE 10MG/ML 1ML VIAL (J2370 PER 1) As Ordered ONE (07:54)
[2020-12-08] MEDS ORDERED: LIDOCAINE 2% 100MG/5ML SDV (FOR ANES.) As Ordered ONE (07:54)
[2020-12-08] MEDS ORDERED: ROCURONIUM BROMIDE 50 MG/5 ML VIAL As Ordered ONE (07:54)
[2020-12-08] MEDS ORDERED: ACETAMINOPHEN 1000MG 100ML IV BTL (OFIRMEV) (J0131 PER 10MG) As Ordered ONE (08:14)
[2020-12-08] MEDS ORDERED: KETOROLAC 60MG 2ML VIAL As Ordered ONE (08:21)
[2020-12-08] MEDS ORDERED: METOCLOPRAMIDE INJ 10MG/2ML VIAL (J2765 PER 1) IV PRN (09:30)
[2020-12-08] MEDS ORDERED: HYDROMORPHONE HCL 0.5 MG/ 0.5 ML SYRINGE (J1170 PER 1) IV PRN (09:30)
[2020-12-08] MEDS ORDERED: oxyCODONE 5MG TAB PO PRN (09:30)
[2020-12-08] MEDS ORDERED: ONDANSETRON 4MG/2ML VIAL IV PRN (09:30)
[2020-12-08] MEDS ORDERED: LR 1,000 ML IV SCH (09:30)
[2020-12-08] MEDS ORDERED: fentaNYL 100 MCG/2 ML INJECTION (J3010) IV PRN (09:30)
[2020-12-08] MEDS ORDERED: NORCO, ANEXSIA 5/325MG TABLET (HYDROcodone/ACETAMINOPHEN) PO PRN (09:35)
--- NOTE | 2020-12-08 11:35 | RO ---
OPERATIVE NOTE DATE OF OPERATION: 12/08/2020 PREOPERATIVE DIAGNOSIS: Incarcerated left inguinal hernia. POSTOPERATIVE DIAGNOSIS: Incarcerated left inguinal hernia. PROCEDURES: Robotic repair of incarcerated left inguinal hernia. SURGEON: Luis Alvarado DO MARINE FIRER: JANET COLLAZO ANESTHESIA: General. ESTIMATED BLOOD LOSS: 5 mL. COMPLICATIONS: None. INDICATIONS FOR PROCEDURE: The patient is a 75-year-old male who presents with a pain and a bulge on the left groin and found to have a large incarcerated hernia. The recommendation was to proceed with a robotic repair. Risks and benefits of the procedure are not limited to, but include bleeding, infection, hernia recurrence, hernia formation, damage to surrounding structures, and need for further surgery, were discussed in detail with the patient. Informed consent was obtained and the procedure was planned. DESCRIPTION OF PROCEDURE: The patient was brought back to operating room #7. After sufficient sedation, the abdomen was sterilely prepped and draped. Next, a time-out was done to confirm the proper patient and proper procedure. Following that, an 8-mm incision was made in the left upper quadrant. Veress needle was inserted. The abdomen was insufflated to 15 mmHg. The Veress needle was then removed and an 8-mm Optiview port was used to gain access to the abdomen. Once the abdomen was entered, two more ports were placed, one supraumbilically in the midline and one in the right upper quadrant. Next, the robot was docked to the ports. The left lower quadrant was then examined. There was an obvious direct defect identified from the peritoneal surface. We then made a curved incision into the peritoneum, dissected through the preperitoneal space laterally and posteriorly, identifying all of the cord structures, and then medially along the pubic symphisis. I was then able to slowly reduce the large hernia of the direct defect. Once it was completely reduced, I continued the dissection posteriorly and then was able to take an 0-Stratafix suture and reapproximate the fascia incorporating the redundant hernia sac at the direct space, back towards the pubic symphysis. Once that was completed, I placed a Bard [id number] light medium mesh into the preperitoneal space, sutured it to the pubic symphysis with a 2-0 Vicryl suture. The peritoneum was then closed over top of it, sutured closed with a 2-0 V-Loc. Once that was completed, needles were removed. The abdomen was desufflated. Skin incisions were closed with 4-0 Vicryl subcuticular sutures. Steri-Strips, 4x4s, and tape were applied, thus ending the procedure.
[2020-12-08 13:47] VITALS: BP 132/76
== END 2020-12-08 14:12 | disposition home or self-care (01) ==
LOC: M SDC 06:13
PROVIDERS: ATTEND Surgery
DX: K40.30 Unilateral inguinal hernia, with obstruction, without gangrene, not specified as recurrent (principal); I10 Essential (primary) hypertension; E78.5 Hyperlipidemia, unspecified; F03.90 Unspecified dementia, unspecified severity, without behavioral disturbance, psychotic disturbance, mood disturbance, and anxiety; Z85.46 Personal history of malignant neoplasm of prostate; Z92.3 Personal history of irradiation; Z98.61 Coronary angioplasty status; I25.10 Atherosclerotic heart disease of native coronary artery without angina pectoris; Z95.810 Presence of automatic (implantable) cardiac defibrillator; Z79.01 Long term (current) use of anticoagulants; Z79.82 Long term (current) use of aspirin; Z79.899 Other long term (current) drug therapy; I25.2 Old myocardial infarction; Z88.2 Allergy status to sulfonamides; Z88.1 Allergy status to other antibiotic agents
CPT/HCPCS: 49650; C1781; J0131; J0690; J1100; J1885; J2250; J2370; J2405; J3010; S2900

== ENCOUNTER → 2021-02-12 | Outpatient (CLI) | payer MEDICARE ==
[~2021-02-12] MED LIST changes: -LR 1,000 ML IV ONE; -ceFAZolin SOD 2 GM in IV 1 EA IV ONE
== END ==
LOC: M PLALAB 11:05
PROVIDERS: ATTEND Nurse Practitioner Women's Health
DX: Z85.46 Personal history of malignant neoplasm of prostate (principal)
CPT/HCPCS: 36415; 84153; G0463

== ENCOUNTER → 2021-09-24 | Outpatient (CLI) | payer MEDICARE ==
[~2021-09-24] MED LIST changes: -AMIO200T3 PO; +AMIO200T49 PO
[2021-09-24 14:36] LABS: HEMATOCRIT 45.7 % (42.0-52.0); HEMOGLOBIN 14.6 g/dl (13.5-17.5); MEAN CORPUSCULAR HEMOGLOBIN 30.9 pg (27.0-33.0); MEAN CORPUSCULAR HGB CONC 31.9 g/dl (32.0-36.5); MEAN CORPUSCULAR VOLUME 96.8 fl (80.0-96.0); PLATELET COUNT, AUTOMATED 202 10^3/uL (150-450); RED BLOOD COUNT 4.72 10^6/uL (4.30-6.10); WHITE BLOOD COUNT 6.8 10^3/uL (4.0-10.0)
[2021-09-24 15:05] LABS: HEMOGLOBIN A1c 5.6 %
[2021-09-24 15:16] LABS: ALT/SGPT 26 U/L (12-78); BILIRUBIN,TOTAL 0.5 MG/DL (0.2-1.0); BLOOD UREA NITROGEN 28 MG/DL (7-18); CALCIUM LEVEL 9.7 MG/DL (8.8-10.2); CARBON DIOXIDE LEVEL 25 MEQ/L (21-32); CHLORIDE LEVEL 108 MEQ/L (98-107); CHOLESTEROL LEVEL 173 MG/DL (<200); CHOLESTEROL RISK RATIO 4.552 (<5); CREATININE FOR GFR 1.28 MG/DL (0.70-1.30); GLUCOSE, FASTING 82 MG/DL (70-100); HDL CHOLESTEROL 38 MG/DL (>40); LDL CHOLESTEROL 59 MG/DL (<100); NON-HDL-C 135 MG/DL; POTASSIUM SERUM 3.9 MEQ/L (3.5-5.1); SODIUM LEVEL 143 MEQ/L (136-145); TESTOSTERONE 670 NG/DL (241-827); TOTAL PROTEIN 6.6 GM/DL (6.4-8.2); TRIGLYCERIDES LEVEL 382 MG/DL (<150)
[2021-09-24 15:17] LABS: ALBUMIN 3.7 GM/DL (3.2-5.2); PROSTATIC SPECIFIC AG MONITOR < 0.01 NG/ML (< 4.00); TOTAL 25(OH) VITAMIN D 51.1 NG/ML (30.0-100.0)
== END ==
LOC: M LAB 14:10
PROVIDERS: ATTEND Family Medicine
DX: R53.83 Other fatigue (principal); I10 Essential (primary) hypertension; E03.9 Hypothyroidism, unspecified; Z79.899 Other long term (current) drug therapy; R97.20 Elevated prostate specific antigen [PSA]

== ENCOUNTER → 2021-12-28 | Outpatient (CLI) | payer MEDICARE ==
[~2021-12-28] MED LIST changes: +SIMV-253 PO; -ZOCO20TA PO
[2021-12-28 13:04] LABS: BLOOD UREA NITROGEN 29 MG/DL (7-18); CALCIUM LEVEL 8.9 MG/DL (8.8-10.2); CARBON DIOXIDE LEVEL 27 MEQ/L (21-32); CHLORIDE LEVEL 107 MEQ/L (98-107); CREATININE FOR GFR 1.24 MG/DL (0.70-1.30); DIGOXIN LEVEL 0.6 NG/ML (0.5-2.0); GLOMERULAR FILTRATION RATE > 60.0 (>42); GLUCOSE, FASTING 93 MG/DL (70-100); NT-PRO BNP 1145 PG/ML (<450); SODIUM LEVEL 138 MEQ/L (136-145)
== END ==
LOC: M LAB 11:22
PROVIDERS: ATTEND Internal Medicine Cardiovascular Disease
DX: I25.5 Ischemic cardiomyopathy (principal); I47.2 Ventricular tachycardia; I10 Essential (primary) hypertension

== ENCOUNTER → 2022-02-12 | Outpatient (CLI) | payer MEDICARE ==
[~2022-02-12] MED LIST changes: +CLOP75TA99 PO; -PLAV1TAB2 PO
== END ==
LOC: M PLALAB 09:53
PROVIDERS: ATTEND Nurse Practitioner Women's Health
DX: Z85.46 Personal history of malignant neoplasm of prostate (principal)

== ENCOUNTER → 2022-02-18 | Outpatient (REF) | payer MEDICARE | LOC: M SFHCDERM 17:59 | PROVIDERS: ATTEND Physician Assistant | DX: L82.0 Inflamed seborrheic keratosis (principal) ==

== ENCOUNTER → 2022-04-24 | Outpatient (CLI) | payer BC, MEDICARE ==
[2022-04-24 10:35] LABS: CREATININE FOR GFR 1.31 MG/DL (0.70-1.30); GLOMERULAR FILTRATION RATE 56.5 (>42)
== END ==
LOC: M LAB 09:15
PROVIDERS: ATTEND Ophthalmology
DX: H53.40 Unspecified visual field defects (principal)

== ENCOUNTER → 2022-04-26 | Outpatient (CLI) | payer MEDICARE ==
[~2022-04-26] MED LIST changes: +ISOVUE-370 76% 100ML VIAL As Ordered ONE
== END ==
LOC: M RAD 07:37
PROVIDERS: ATTEND Ophthalmology
DX: H53.9 Unspecified visual disturbance (principal)
CPT/HCPCS: 70470; 70481; Q9967

== ENCOUNTER → 2022-05-07 | Outpatient (CLI) | payer MEDICARE ==
[~2022-05-07] MED LIST changes: -ISOVUE-370 76% 100ML VIAL As Ordered ONE
[2022-05-07 12:39] LABS: HEMATOCRIT 44.6 % (42.0-52.0); HEMOGLOBIN 14.2 g/dl (13.5-17.5); MEAN CORPUSCULAR HEMOGLOBIN 32.1 pg (27.0-33.0); MEAN CORPUSCULAR HGB CONC 31.8 g/dl (32.0-36.5); MEAN CORPUSCULAR VOLUME 100.9 fl (80.0-96.0); PLATELET COUNT, AUTOMATED 219 10^3/uL (150-450); RED BLOOD COUNT 4.42 10^6/uL (4.30-6.10); WHITE BLOOD COUNT 7.6 10^3/uL (4.0-10.0)
[2022-05-07 12:47] LABS: HEMOGLOBIN A1c 5.3 % (4.0-6.0)
[2022-05-07 13:14] LABS: ALBUMIN 3.7 G/DL (3.2-5.2); BILIRUBIN,TOTAL 0.7 MG/DL (0.3-1.2); CALCIUM LEVEL 9.3 MG/DL (8.3-10.6); CHOLESTEROL RISK RATIO 3.91 (<5); CORTISOL AM 4.8 UG/DL (4.3-22.4); CREATININE FOR GFR 1.32 MG/DL (0.70-1.30); HDL CHOLESTEROL 45.2 MG/DL (>40); LDL CHOLESTEROL 92.2 MG/DL (<100); PROSTATIC SPECIFIC AG MONITOR 0.04 NG/ML (< 4.00); THYROID STIMULATING HORMONE 3.367 uIU/ML (0.55-4.78); THYROXINE (T4) 6.2 UG/DL (4.5-10.9); TOTAL PROTEIN 6.4 G/DL (5.7-8.2); TOTAL T3 79.9 NG/DL (60.0-181.0)
[2022-05-09 23:10] LABS: FREE ANDROGEN INDEX 25.9 (18.0-82.0); SEX HORM BINDING GLOB 67.3 nmol/L (19.3-76.4); TESTOSTERONE 502 ng/dL (264-916)
== END ==
LOC: M LAB 11:21
PROVIDERS: ATTEND Family Medicine
DX: I10 Essential (primary) hypertension (principal); R53.83 Other fatigue; E03.9 Hypothyroidism, unspecified; Z79.899 Other long term (current) drug therapy

== ENCOUNTER → 2022-06-10 | Outpatient (CLI) | payer MEDICARE ==
[2022-06-10 14:10] LABS: BASO # 0.1 10^3/uL (0.0-0.2); BASO % 0.6 % (0.0-1.0); EOS # 0.1 10^3/uL (0.0-0.5); HEMATOCRIT 42.7 % (42.0-52.0); HEMOGLOBIN 13.8 g/dl (13.5-17.5); LYMPH # 1.2 10^3/uL (1.5-5.0); LYMPH % 15.6 % (24.0-44.0); MEAN CORPUSCULAR HGB CONC 32.3 g/dl (32.0-36.5); MEAN CORPUSCULAR VOLUME 99.1 fl (80.0-96.0); MONO % 13.1 % (2.0-8.0); NEUTROPHILS # 5.5 10^3/uL (1.5-8.5); NEUTROPHILS % 68.9 % (36.0-66.0); PLATELET COUNT, AUTOMATED 339 10^3/uL (150-450); RED BLOOD COUNT 4.31 10^6/uL (4.30-6.10)
[2022-06-10 16:08] LABS: ALBUMIN 3.1 G/DL (3.2-5.2); ALKALINE PHOSPHATASE 71 U/L (46-116); ALT/SGPT 26 U/L (7.0-40); AST/SGOT 24 U/L (<34); BLOOD UREA NITROGEN 17 MG/DL (9-23); CALCIUM LEVEL 8.7 MG/DL (8.3-10.6); CARBON DIOXIDE LEVEL 28 MMOL/L (20-31); CHLORIDE LEVEL 103 MMOL/L (98-107); CREATININE FOR GFR 1.22 MG/DL (0.70-1.30); GLOMERULAR FILTRATION RATE > 60.0 (>42); GLUCOSE, FASTING 96 MG/DL (74-106); POTASSIUM SERUM 3.6 MMOL/L (3.5-5.1); PROLACTIN 7.79 NG/ML (2.1-17.7); SODIUM LEVEL 141 MMOL/L (136-145); TOTAL PROTEIN 5.9 G/DL (5.7-8.2)
== END ==
LOC: M LAB 13:42
PROVIDERS: ATTEND Psychiatry & Neurology Neurology
DX: D35.2 Benign neoplasm of pituitary gland (principal)

== ENCOUNTER → 2022-10-18 | Outpatient (CLI) | payer MEDICARE ==
[2022-10-18 12:35] LABS: BLOOD UREA NITROGEN 20 MG/DL (9-23); CREATININE FOR GFR 1.19 MG/DL (0.70-1.30); GLOMERULAR FILTRATION RATE > 60.0 (>42)
== END ==
LOC: M LAB 11:25
PROVIDERS: ATTEND Psychiatry & Neurology Neurology
DX: I10 Essential (primary) hypertension (principal)

== ENCOUNTER → 2023-02-17 | Outpatient (CLI) | payer MEDICARE | LOC: M LAB 14:28 | PROVIDERS: ATTEND Physician Assistant | DX: Z85.46 Personal history of malignant neoplasm of prostate (principal) ==

== ENCOUNTER → 2023-05-22 | Outpatient (CLI) | payer MEDICARE ==
[2023-05-22 17:23] LABS: BASO # 0.1 10^3/uL (0.0-0.2); BASO % 1.3 % (0.0-1.0); EOS # 0.3 10^3/uL (0.0-0.5); EOS % 4.3 % (0.0-3.0); HEMATOCRIT 47.3 % (42.0-52.0); HEMOGLOBIN 15.8 g/dl (13.5-17.5); LYMPH # 1.4 10^3/uL (1.5-5.0); LYMPH % 21.2 % (24.0-44.0); MEAN CORPUSCULAR HEMOGLOBIN 33.1 pg (27.0-33.0); MEAN CORPUSCULAR HGB CONC 33.4 g/dl (32.0-36.5); MEAN CORPUSCULAR VOLUME 99.2 fl (80.0-96.0); MONO # 0.8 10^3/uL (0.0-0.8); MONO % 12.2 % (2.0-8.0); NEUTROPHILS # 4.1 10^3/uL (1.5-8.5); NEUTROPHILS % 60.7 % (36.0-66.0); PLATELET COUNT, AUTOMATED 206 10^3/uL (150-450); RED BLOOD COUNT 4.77 10^6/uL (4.30-6.10); WHITE BLOOD COUNT 6.8 10^3/uL (4.0-10.0)
[2023-05-22 17:36] LABS: ERYTHROCYTE SEDIMENTATION RATE 5 mm/hr (0-20); HEMOGLOBIN A1c 5.4 % (4.0-6.0)
[2023-05-22 17:49] LABS: FOLATE 20.8 NG/ML (>5.4); THYROID STIMULATING HORMONE 5.361 uIU/ML (0.55-4.78)
[2023-05-22 17:50] LABS: ALBUMIN 3.9 G/DL (3.2-5.2); ALKALINE PHOSPHATASE 60 U/L (46-116); ALT/SGPT 21 U/L (7.0-40); AST/SGOT 17 U/L (<34); BILIRUBIN,TOTAL 0.8 MG/DL (0.3-1.2); BLOOD UREA NITROGEN 31 MG/DL (9-23); CALCIUM LEVEL 9.2 MG/DL (8.3-10.6); CARBON DIOXIDE LEVEL 28 MMOL/L (20-31); CHLORIDE LEVEL 107 MMOL/L (98-107); CREATININE FOR GFR 1.25 MG/DL (0.70-1.30); GLOMERULAR FILTRATION RATE 59.3 (>42); GLUCOSE, FASTING 88 MG/DL (74-106); POTASSIUM SERUM 3.6 MMOL/L (3.5-5.1); SODIUM LEVEL 142 MMOL/L (136-145); TOTAL PROTEIN 6.4 G/DL (5.7-8.2)
[2023-05-22 17:51] LABS: RHEUMATOID FACTOR QUANT < 3.5 IU/ML (<14)
[2023-05-22 17:52] LABS: VITAMIN B12 LEVEL 758 PG/ML (211-911)
[2023-05-23 11:12] LABS: PTT LUPUS TYPE ANTICOAG SCREEN 0.92 (0-1.20)
== END ==
LOC: M LAB 16:20
PROVIDERS: ATTEND Psychiatry & Neurology Neurology
DX: G60.9 Hereditary and idiopathic neuropathy, unspecified (principal); G31.84 Mild cognitive impairment of uncertain or unknown etiology; Z79.01 Long term (current) use of anticoagulants; Z79.899 Other long term (current) drug therapy

== ENCOUNTER → 2023-06-06 | Outpatient (CLI) | payer MEDICARE ==
[~2023-06-06] MED LIST changes: +ISOVUE-370 76% 100ML VIAL As Ordered ONE
== END ==
LOC: M RAD 13:43
PROVIDERS: ATTEND Psychiatry & Neurology Neurology
DX: D35.2 Benign neoplasm of pituitary gland (principal)
CPT/HCPCS: 70470; Q9967

== ENCOUNTER → 2023-06-12 | Outpatient (CLI) | payer MEDICARE ==
[~2023-06-12] MED LIST changes: -ISOVUE-370 76% 100ML VIAL As Ordered ONE; -SENN1TAB41 PO; +SENN1TAB85 PO
[2023-06-12 16:31] LABS: BLOOD UREA NITROGEN 24 MG/DL (9-23); CARBON DIOXIDE LEVEL 29 MMOL/L (20-31); CHLORIDE LEVEL 108 MMOL/L (98-107); CREATININE FOR GFR 1.22 MG/DL (0.70-1.30); GLOMERULAR FILTRATION RATE > 60.0 (>42); GLUCOSE, FASTING 87 MG/DL (74-106); POTASSIUM SERUM 3.9 MMOL/L (3.5-5.1); SODIUM LEVEL 138 MMOL/L (136-145)
[2023-06-12 16:32] LABS: FREE T4 1.07 NG/DL (0.89-1.76)
[2023-06-12 16:33] LABS: TESTOSTERONE 715 NG/DL (241-827)
[2023-06-12 16:34] LABS: CORTISOL AM 15.1 UG/DL (4.3-22.4)
== END ==
LOC: M PLALAB 12:04
PROVIDERS: ATTEND Internal Medicine Endocrinology, Diabetes & Metabolism
DX: D49.7 Neoplasm of unspecified behavior of endocrine glands and other parts of nervous system (principal)

== ENCOUNTER → 2023-07-17 | Outpatient (CLI) | payer MEDICARE | LOC: M RAD 13:47 | PROVIDERS: ATTEND Family Medicine | DX: M19.90 Unspecified osteoarthritis, unspecified site (principal) ==

== ENCOUNTER 2023-08-27 08:20 | Emergency (ER) | payer MEDICARE ==
[2023-08-27 08:51] LABS: BASO # 0.1 10^3/uL (0.0-0.2); BASO % 1.2 % (0.0-1.0); EOS # 0.2 10^3/uL (0.0-0.5); EOS % 4.3 % (0.0-3.0); HEMOGLOBIN 15.9 g/dl (13.5-17.5); LYMPH # 1.4 10^3/uL (1.5-5.0); LYMPH % 24.7 % (24.0-44.0); MEAN CORPUSCULAR HEMOGLOBIN 33.8 pg (27.0-33.0); MEAN CORPUSCULAR HGB CONC 33.8 g/dl (32.0-36.5); MONO # 0.9 10^3/uL (0.0-0.8); MONO % 15.7 % (2.0-8.0); NEUTROPHILS % 53.7 % (36.0-66.0); PLATELET COUNT, AUTOMATED 234 10^3/uL (150-450); WHITE BLOOD COUNT 5.6 10^3/uL (4.0-10.0)
[2023-08-27 09:14] LABS: CK-MB VALUE MASS 3.7 NG/ML (<3.6)
[2023-08-27 09:16] LABS: CALCIUM LEVEL 8.6 MG/DL (8.3-10.6); CREATININE FOR GFR 1.24 MG/DL (0.70-1.30); GLOMERULAR FILTRATION RATE 59.9 (>42); POTASSIUM SERUM 3.6 MMOL/L (3.5-5.1)
[2023-08-27 09:18] LABS: MB/CK RELATIVE INDEX 2.5 (< OR =4)
[2023-08-27] MEDS ORDERED: AZOP0.2S OU (09:19)
[2023-08-27] MEDS ORDERED: ACET-683 PO (09:19)
[2023-08-27] MEDS ORDERED: HOME MED LIST COMPLETE! XX SCH (09:20)
[2023-08-27 10:23] LABS: MB/CK RELATIVE INDEX 2.4 (< OR =4)
[2023-08-27 15:15] VITALS: BP 128/73; TEMP 96.9; O2SAT 98
== END 2023-08-27 15:30 | disposition home or self-care (01) ==
LOC: M ED 08:20 → EDBD 08:20 → M ED 15:30
DX: R07.9 Chest pain, unspecified (principal); F43.81 Prolonged grief disorder; I25.2 Old myocardial infarction; I10 Essential (primary) hypertension; E78.5 Hyperlipidemia, unspecified; Z88.1 Allergy status to other antibiotic agents; Z88.2 Allergy status to sulfonamides; Z86.79 Personal history of other diseases of the circulatory system; Z95.0 Presence of cardiac pacemaker; Z79.1 Long term (current) use of non-steroidal anti-inflammatories (NSAID); Z79.02 Long term (current) use of antithrombotics/antiplatelets; Z79.899 Other long term (current) drug therapy

== ENCOUNTER 2023-11-20 09:00 | Outpatient (RCR) | payer MEDICARE ==
[~2023-11-20 09:00] MED LIST changes: +AZOP0.2S OU; +ONDA-282 PO; -ONDA4TAB6 PO
== END 2023-12-06 ==
LOC: M PT 09:00
PROVIDERS: ATTEND Family Medicine
DX: M47.812 Spondylosis without myelopathy or radiculopathy, cervical region (principal); M19.011 Primary osteoarthritis, right shoulder; M19.012 Primary osteoarthritis, left shoulder

== ENCOUNTER → 2023-11-26 | Outpatient (CLI) | payer MEDICARE ==
[2023-11-26 15:02] LABS: BLOOD UREA NITROGEN 24 MG/DL (9-23); CREATININE FOR GFR 1.14 MG/DL (0.70-1.30); GLOMERULAR FILTRATION RATE > 60.0 (>42)
== END ==
LOC: M LAB 14:13
PROVIDERS: ATTEND Psychiatry & Neurology Neurology
DX: I10 Essential (primary) hypertension (principal)

== ENCOUNTER → 2023-12-04 | Outpatient (CLI) | payer MEDICARE ==
[~2023-12-04] MED LIST changes: +ISOVUE-370 76% 100ML VIAL ONE
== END ==
LOC: M PLAIMG 10:26
PROVIDERS: ATTEND Psychiatry & Neurology Neurology
DX: D35.2 Benign neoplasm of pituitary gland (principal)
CPT/HCPCS: 70470; Q9967

== ENCOUNTER → 2023-12-23 | Outpatient (CLI) | payer MEDICARE ==
[~2023-12-23] MED LIST changes: -ISOVUE-370 76% 100ML VIAL ONE
[2023-12-23 11:53] LABS: CHOLESTEROL RISK RATIO 3.58 (<5); LDL CHOLESTEROL 101.6 MG/DL (<100)
== END ==
LOC: M LAB 10:24
PROVIDERS: ATTEND Nurse Practitioner Acute Care
DX: E78.5 Hyperlipidemia, unspecified (principal)

== ENCOUNTER 2024-01-02 10:38 | Emergency (ER) | payer MEDICARE ==
[~2024-01-02] VITALS: Ht 188 cm; Wt 71.8 kg
[2024-01-02] MEDS ORDERED: ISOVUE-370 76% 100ML VIAL As Ordered ONE (11:16)
[2024-01-02 11:26] LABS: BASO # 0.1 10^3/uL (0.0-0.2); BASO % 1.2 % (0.0-1.0); EOS # 0.3 10^3/uL (0.0-0.5); EOS % 4.3 % (0.0-3.0); HEMATOCRIT 42.7 % (42.0-52.0); LYMPH # 1.5 10^3/uL (1.5-5.0); LYMPH % 21.7 % (24.0-44.0); MEAN CORPUSCULAR HEMOGLOBIN 32.8 pg (27.0-33.0); MEAN CORPUSCULAR HGB CONC 32.8 g/dl (32.0-36.5); MONO # 0.9 10^3/uL (0.0-0.8); MONO % 13.5 % (2.0-8.0); NEUTROPHILS # 3.9 10^3/uL (1.5-8.5); NEUTROPHILS % 58.9 % (36.0-66.0); PLATELET COUNT, AUTOMATED 166 10^3/uL (150-450); RED BLOOD COUNT 4.27 10^6/uL (4.30-6.10); WHITE BLOOD COUNT 6.7 10^3/uL (4.0-10.0)
[2024-01-02 11:38] LABS: INR 1.05; PARTIAL THROMBOPLASTIN TIME 34.7 SECONDS (24.8-34.2); PROTHROMBIN TIME 13.4 SECONDS (12.5-14.5)
[2024-01-02 11:52] LABS: BLOOD UREA NITROGEN 19 MG/DL (9-23); CALCIUM LEVEL 9.2 MG/DL (8.3-10.6); CARBON DIOXIDE LEVEL 28 MMOL/L (20-31); CHLORIDE LEVEL 111 MMOL/L (98-107); CK-MB VALUE MASS 2.3 NG/ML (<3.6); CPK CREATINE PHOSPHOKINASE 72 U/L (46-171); CREATININE FOR GFR 1.17 MG/DL (0.70-1.30); GLOMERULAR FILTRATION RATE > 60.0 (>42); GLUCOSE, FASTING 91 MG/DL (74-106); MB/CK RELATIVE INDEX 3.19 (< OR =4); SODIUM LEVEL 140 MMOL/L (136-145)
[2024-01-02] MEDS: diphenhydrAMINE 50MG/ML VIAL IV STA (12:58)
[2024-01-02] MEDS: METOCLOPRAMIDE INJ 10MG/2ML VIAL IV ONE (12:58)
[2024-01-02] MEDS: ACETAMINOPHEN *IV* 1,000 MG in IV 1 EA IV ONE (12:59)
[2024-01-02 14:35] VITALS: BP 129/62; TEMP 97; O2SAT 98
== END 2024-01-02 14:40 | disposition home or self-care (01) ==
LOC: M ED 10:38
DX: R51.9 Headache, unspecified (principal); E07.9 Disorder of thyroid, unspecified; I65.23 Occlusion and stenosis of bilateral carotid arteries; I49.3 Ventricular premature depolarization; I25.2 Old myocardial infarction; N40.0 Benign prostatic hyperplasia without lower urinary tract symptoms; E78.5 Hyperlipidemia, unspecified; I10 Essential (primary) hypertension; Z88.1 Allergy status to other antibiotic agents; Z88.2 Allergy status to sulfonamides; Z87.891 Personal history of nicotine dependence; Z86.718 Personal history of other venous thrombosis and embolism; Z79.02 Long term (current) use of antithrombotics/antiplatelets; Z79.899 Other long term (current) drug therapy; Z79.1 Long term (current) use of non-steroidal anti-inflammatories (NSAID)
CPT/HCPCS: 70450; 70496; 70498; 71045; 80047; 80048; 82550; 82553; 84484; 85025; 85610; 85730; 86850; 86900; 86901; 93005; 93041; 94760; 96365; 96366; 96375; 99285; J0131; J1200; J2765; Q9967

== ENCOUNTER 2024-08-05 10:59 | Emergency (ER) | payer MEDICARE ==
[~2024-08-05] VITALS: Ht 188 cm; Wt 76.2 kg
[2024-08-05 11:31] LABS: BASO # 0.1 10^3/uL (0.0-0.2); EOS # 0.2 10^3/uL (0.0-0.5); EOS % 2.5 % (0.0-3.0); HEMATOCRIT 49.5 % (42.0-52.0); LYMPH # 1.4 10^3/uL (1.5-5.0); LYMPH % 19.2 % (24.0-44.0); MEAN CORPUSCULAR HEMOGLOBIN 30.9 pg (27.0-33.0); MEAN CORPUSCULAR HGB CONC 32.3 g/dl (32.0-36.5); MEAN CORPUSCULAR VOLUME 95.6 fl (80.0-96.0); MONO # 0.9 10^3/uL (0.0-0.8); MONO % 12.2 % (2.0-8.0); NEUTROPHILS # 4.7 10^3/uL (1.5-8.5); NEUTROPHILS % 64.7 % (36.0-66.0); PLATELET COUNT, AUTOMATED 173 10^3/uL (150-450); RED BLOOD COUNT 5.18 10^6/uL (4.30-6.10); WHITE BLOOD COUNT 7.2 10^3/uL (4.0-10.0)
[2024-08-05 11:56] LABS: ALBUMIN 3.9 G/DL (3.2-5.2); BILIRUBIN,DIRECT 0.3 MG/DL (<0.4); BILIRUBIN,TOTAL 0.9 MG/DL (0.3-1.2); CALCIUM LEVEL 9.5 MG/DL (8.3-10.6); CREATININE FOR GFR 1.48 MG/DL (0.70-1.30); GLOMERULAR FILTRATION RATE 47.5 (>35); POTASSIUM SERUM 4.1 MMOL/L (3.5-5.1); TOTAL PROTEIN 6.7 G/DL (5.7-8.2)
[2024-08-05 11:59] LABS: THYROID STIMULATING HORMONE 1.767 uIU/ML (0.55-4.78)
[2024-08-05 13:02] LABS: DIGOXIN LEVEL 0.5 NG/ML (0.8-2.0)
[2024-08-05] MEDS: NS 500 ML IV ONE (15:06)
[2024-08-05 16:16] VITALS: BP 121/63
[2024-08-05 16:17] VITALS: TEMP 97; O2SAT 100
== END 2024-08-05 16:36 | disposition home or self-care (01) ==
LOC: M ED 10:59
DX: S20.212A Contusion of left front wall of thorax, initial encounter (principal); F03.90 Unspecified dementia, unspecified severity, without behavioral disturbance, psychotic disturbance, mood disturbance, and anxiety; E86.0 Dehydration; W01.198A Fall on same level from slipping, tripping and stumbling with subsequent striking against other object, initial encounter; K59.00 Constipation, unspecified; M16.0 Bilateral primary osteoarthritis of hip; I25.2 Old myocardial infarction; I10 Essential (primary) hypertension; E78.5 Hyperlipidemia, unspecified; N40.0 Benign prostatic hyperplasia without lower urinary tract symptoms; Z95.0 Presence of cardiac pacemaker; Z79.02 Long term (current) use of antithrombotics/antiplatelets; Z79.899 Other long term (current) drug therapy; Z88.1 Allergy status to other antibiotic agents; Z88.2 Allergy status to sulfonamides; Z79.01 Long term (current) use of anticoagulants; Y92.009 Unspecified place in unspecified non-institutional (private) residence as the place of occurrence of the external cause; Y93.89 Activity, other specified; Y99.9 Unspecified external cause status